=== PATIENT | female | born 1995 | race Caucasian/White ===

== ENCOUNTER 2017-11-10 01:17 | Observation (INO) | payer BC, SELFPAY ==
[2017-11-10] VITALS (11 sets, daily range): BP systolic 116–135; BP diastolic 64–89; PULSE 86–112; RESP 12–24; TEMP 36.2–36.9; O2SAT 96–99; BMI 35.5; BMI 33.9
--- NOTE | 2017-11-10 01:23 | EKG12_ITS ---
Test Reason : SEIZURE Blood Pressure : / mmHG Vent. Rate : 094 BPM Atrial Rate : 094 BPM P-R Int : 192 ms QRS Dur : 096 ms QT Int : 350 ms P-R-T Axes : 039 -02 011 degrees QTc Int : 437 ms Normal sinus rhythm Normal ECG Confirmed by WM RAI MD ([id number]), editorial writer NAOMI IVY ([id number] on 11/12/2017 1:44:53 PM Referred By: ELIZABETH Confirmed By:WM RAI MD
--- NOTE | 2017-11-10 01:23 | CT_ITS ---
STUDY: CT BRAIN WITHOUT CONTRAST REASON FOR EXAM: Female, 22 years old. Seizure. Found unresponsive. RADIATION DOSAGE (If Supplied By Facility): CTDIvol = ( 44.99 ) mGy, DLP = ( 745.49 ) mGycm TECHNIQUE: Transaxial CT imaging of the brain was performed without administration of intravenous contrast material. Individualized dose optimization techniques were used for this CT. COMPARISON: None. FINDINGS: Normal soft tissue structures. Normal calvarium. Normal size ventricles and extra-axial spaces for the patient's age. Normal white matter tracts of the cerebral hemispheres. Normal basal ganglia and thalami. Normal brainstem. Normal cerebellum. Within the medial aspect left frontal lobe is a 3.4 x 2.0 cm ill-defined cyst attenuation 15 Hounsfield units. No appreciable midline shift. There is no intracranial hemorrhage. There are no findings of an acute ischemic infarction. Normal visualized paranasal sinuses. CT/Brain/Head without Contrast IMPRESSION: 3.4 cm ill-defined left frontal lobe cyst. Considerations include an abscess or a cystic neoplasm. Recommend correlation with MRI with contrast. Electronically Signed: Freddy Rodriguez MD at 2:32 EST , Service support ,
--- NOTE | 2017-11-10 01:31 | ED.DCSUM_ITS ---
- ER Visit Summary Date of Service: 11/10/17 Chief Complaint: Questionable seizure History of Present Illness: The patient is a 22 F who is otherwise healthy and takes easier. The patient was in her normal state of health. She was actually sleeping. Mom states that she heard some loud noises from her bedroom. She went to check on her. The patient was unresponsive. She was foaming from her mouth was very tense. She would not respond to sternal rub or to her name. It lasted a few minutes and then she had guttural sounds. Squad was called. By the time squad arrived, the patient was back to baseline. There is no urinary incontinence but she did have some tongue biting. The patient has no history of seizure disorder. She does not take any daily medications. She denies any drug use. She states she did have 1 alcoholic beverage today, but does not drink regularly. She denies any recent trauma. She denies any other systemic symptoms. Physical Examination: Vital signs reviewed General: Well-nourished, well-developed Head: Normocephalic, atraumatic Eyes: Pupils equal and reactive, extraocular muscles intact Neck, supple, no lymphadenopathy Heart: Regular rate and rhythm Respiratory: No distress, clear bilaterally Abdomen: Soft, nontender, nondistended, no peritoneal signs Back: Nontender Extremities: Nontender, no edema, no cords Skin: Normal color no rash Neuro: Alert and oriented, no focal or lateralizing deficits Test Results: Screening labs were obtained were unremarkable. CT the head shows a well-circumscribed mass in the left frontal area that is 3.4 x 2 cm. There is no midline shift. There is no significant edema. Emergency Department Course and Treatment: Patient presents with a new onset seizure. She has a normal neurologic examination. Her labs are unremarkable. However, her CT does show evidence of a frontal lobe mass. There is no midline shift and no significant edema. Patient was sent for CT with IV contrast which is currently pending. She was given IV Keppra. I discussed the patient with Dr. Forman for neurology. The patient is going to need an MRI and he was comfortable with her staying here with him on consult. The patient will be discussed with the hospitalist and will be admitted for further workup of new onset seizure with brain mass. Treatment Plan: [] Disposition: Admission Impression: 1. New onset seizure 2. Left frontal lobe mass This note was generated with [employer] dictation software. It may contain incorrect words, spelling, and punctuation that were not noted in review of the chart prior to signing ED Disposition - Plan for ED Patient: Chief Complaint: Seizure Referrals: Benja Simpson MD [Primary Care Provider] -
[2017-11-10] MEDS: 0.9% Normal Saline 1,000 ML 1000 ML IV (01:37)
[2017-11-10 01:55] LABS: Absolute Lymphocyte Count 2.47 X10^3/ul (0.83-4.51); Absolute Neutrophil Count 6.9 X10^3/uL (2.0-7.7); Basophil# 0.01 X10^3/uL; Basophil% 0.1 % (0-1); Eosinophil# 0.07 X10^3/uL; Eosinophils% 0.7 % (0-5); Hematocrit 39.2 % (37-47); Hemoglobin 13.7 g/dl (12.0-15.0); Lymphocyte # 2.47 X10^3/ul (4.0); Lymphocyte % 24.5 % (19-41); Mean Corp Hgb Conc 34.9 g/gl (32-36); Mean Corpuscular Hgb 29.1 pg (27.0-32.0); Mean Corpuscular Volume 83.2 fL (81-99); Mean Platelet Vol. 9.3 fl (6.2-12.0); Monocyte# 0.62 X10^3/uL; Monocyte% 6.2 % (0-10); Neutrophil # 6.88 X10^3/uL (2.7-7.7); Neutrophil % 68.3 % (47-70); POSITIVE COUNT NO; POSITIVE DIFFERENTIAL NO; POSITIVE MORPHOLOGY NO; Platelet Count 189 K/mm3 (150-450); RBC Distribution Width CV 12.1 % (11.6-14.6); RBC Distribution Width SD 36.7 fl (35.1-43.9); Red Blood Count 4.71 M/mm3 (4.2-5.4); White Blood Count 10.1 K/mm3 (4.4-11.0)
--- NOTE | 2017-11-10 02:14 | CT_ITS ---
STUDY: CT BRAIN WITH CONTRAST REASON FOR EXAM: Female, 22 years old. Seizure. Patient found unresponsive. RADIATION DOSAGE (If Supplied By Facility): CTDIvol = ( 44.99 ) mGy, DLP = ( 829.85 ) mGycm TECHNIQUE: Transaxial CT imaging of the brain was performed post contrast administration. The examination was performed with intravenous administration of 50 ml of Isovue 370 contrast material. Individualized dose optimization techniques were used for this CT. COMPARISON: Noncontrast CT head November 10, 2017. FINDINGS: Normal soft tissue structures. Normal calvarium. Normal size ventricles and extra-axial spaces for the patient's age. Normal white matter tracts of the cerebral hemispheres. Normal basal ganglia and thalami. Normal brainstem. Normal cerebellum. There is no intracranial hemorrhage. There are no findings of an acute ischemic infarction. Again noted is a 3.5 x 2.2 cm cyst, attenuation 14 Hounsfield units, within the medial aspect left frontal lobe demonstrating very minimal rim enhancement. No thickened wall to suggest an abscess. No appreciable mass effect. No appreciable contrast enhancement within the cyst. No midline shift. Normal visualized paranasal sinuses. CT/Brain/Head W/WO Contrast IMPRESSION: 3.5 cm left frontal lobe cyst with minimal rim enhancement. Considerations include an epidermoid or a cystic neoplasm. Recommend correlation with MRI with contrast as well as diffusion-weighted images. Electronically Signed: Freddy Rodriguez MD at 3:28 EST , Service support ,
[2017-11-10 02:22] LABS: ALB/GLOB Ratio 1.2 RATIO (0.9-2.4); AST(SGOT) 16 U/L (15-37); Alanine Aminotransfer ALT/SGPT 33 U/L (13-56); Albumin, Serum 3.7 g/dL (3.2-5.0); Alkaline Phosphatase 64 U/L (45-117); Anion Gap 8 (5-15); BUN 17 mg/dL (7-18); BUN/Creat Ratio 21.5 RATIO (10-20); Calcium,Total 8.5 mg/dL (8.5-10.1); Chloride 109 mmol/L (98-107); Creatinine, Serum 0.79 mg/dL (0.55-1.02); EST Glomerular Filtration Rate 96 mL/min (>60); Est Glom Filt Rate - Afr Amer 116 mL/min (>60); Globulin 3.1 g/dL (2.2-4.2); Glucose 112 mg/dL (74-106); Potassium 3.7 mmol/L (3.5-5.1); Protein, Total 6.8 g/dL (6.4-8.2); Sodium Level 143 mmol/L (136-145)
[2017-11-10 02:23] LABS: Pregnancy, Serum, hCG Quali. NEGATIVE Negative (0-9 Nonpreg)
--- NOTE | 2017-11-10 04:19 | PCM.HP.STD ---
Problem List (1) Lesion of left frontal lobe of brain Status: Acute (2) New onset seizure Status: Acute History of Present Illness Date of Admission: 11/10/17 Chief Complaint: New onset seizure The patient is a 22 year old female previous healthy admitted for new onset seizure. Pt is unable to remember the event. Her mother heard the dog barking in her room. By the time her mother came to the room, her mother noted that she was drooling at her mouth. She was -weight. Nothing appeared to wake her up and she was unconscious. After 10 minutes, she regained conscious and unable to remember the event. She had a mild frontal headache. Nothing made the headache worse or better and headache resolved within a few hours. She had headache in the past but associated the headache with whatever other symptoms she had. She never had a seizure or had lost conscious before. Her mother brought her to the ED for further workup. Past Medical History Allergies No Known Allergies Allergy (Verified 11/10/17 01:26) Home Medications: Ambulatory Orders Medication Instructions Recorded NK [NK] 11/10/17 Surgical History: no surgical history Lives: With Family Smoking Status: Never smoker Alcohol: None Drugs: None - *Family History Maternal History Items: No pertinent history Review of Systems Constitutional: Denies: Chills, Fever, Weight Change HEENT: Denies: Head Aches, Sinus Congestion, Sinus Drainage Cardiovascular: Denies: Chest Pain, Palpitations Respiratory: Denies: Cough, Shortness of breath at rest, Sputum production Gastrointestinal: Denies: Abdominal Pain, Nausea, Vomiting Genitourinary: Denies: Dysuria Musculoskeletal: Denies: Joint Pain, Joint Tenderness Skin: Denies: Rash, Wounds Neurological: Reports: Seizures. Denies: Focal weakness, Numbness, Tingling Psychiatric: Denies: Anxiety, Depression, Homicidal Ideations, Suicidal Ideations Hematologic/ Lymphatic: Denies: Easy Bruising, Easy Bleeding VTE Information - Inpt Only VTE Present on Admission: No VTE Mechan Device Prophylaxis: SCD's VTE Pharm Prophylaxis ordered?: Yes Patient Problems: Active and Suspected Problems Lesion of left frontal lobe of brain (Acute) New onset seizure (Acute) - Physical Exam General: Alert, Oriented x3, Cooperative HEENT: Atraumatic, PERRLA, EOMI, Normocephalic Neck: Supple, No JVD, Negative Carotid Bruits Lungs: Clear to auscultation, Normal air movement Cardiovascular: Regular rate, No murmurs Abdomen: Bowel Sounds Present, Soft, Non Tender Extremities: No edema, Capillary Refill Less than 3 Seconds Skin: No rashes, No breakdown Musculoskeletal: No Tenderness to Palpation of Joints or Extremities Neurological: Cranial nerves II-XII grossly intact Psych/Mental Status: Normal Affect, Appropriate Vital Signs Temp Pulse Resp BP Pulse Ox 97.2 F L 109 H 16 116/79 96 11/10/17 01:18 11/10/17 03:50 11/10/17 03:50 11/10/17 03:50 11/10/17 03:50 Assessment/Plan Active and Suspected Problems Lesion of left frontal lobe of brain (Acute) New onset seizure (Acute) 22 year old female previous healthy admitted for new onset seizure. 1) New onset seizure: Most likely secondary to 3.5 cm left frontal lobe cyst with minimal rim enhancement Will get MRI brain. Consult neuro. May need anti-seizure meds but will defer to neuro. 2)Left frontal brain cyst: MRI in AM. Neuro consulted. 3) Prophylaxis: SCD / heparin.
--- NOTE | 2017-11-10 05:55 | MRI_ITS ---
STUDY: MRI BRAIN WITH AND WITHOUT CONTRAST REASON FOR EXAM: Female, 22 years old. Syncope versus seizure. New onset of seizure. TECHNIQUE: Standardized multiplanar fat and water weighted pulse sequences were obtained. 9 ml of Gadavist contrast material was administered intravenously for the contrast portion of the examination. COMPARISON: CT brain with and without contrast 11/10/2017. FINDINGS: Nonenhancing T1 hypointensity intra-axial lesion in the left superior frontal lobe gyrus measures 4.2 x 2.4 x 3.3 cm. This is low grade neoplasm. This is slightly hyperintense on the T2 FLAIR sequence. Normal ventricles and cisterns. No other focal signal abnormalities throughout the brain parenchyma. Normal bilateral basal ganglia. Normal thalami. There is no extra-axial fluid accumulation. Normal flow voids within the major intracranial circulation suggesting patency by spin echo criteria. Normal venous enhancement. There is no enhancing intra-axial or extra-axial abnormality. Normal sella turcica, pituitary gland, infundibular stalk, optic chiasm and hypothalamus. Normal tectal plate and pineal gland. Normal midbrain, nia and medulla. Normal cerebellum. Normal basal cisterns. Normal bilateral temporal bones. Normal bilateral internal auditory canals. No demonstrated orbital abnormality, within the constraints of a routine brain study. Normal visualized paranasal sinuses. Normal calvarium and skull base. Normal visualized soft tissue structures. Normal visualized upper cervical spine. 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 Electronically Signed: Antonio Mccall MD at 13:37 EST , Service support ,
[2017-11-10 06:30] LABS: Hematocrit 39.3 % (37-47); Hemoglobin 13.6 g/dl (12.0-15.0); Mean Corp Hgb Conc 34.6 g/gl (32-36); Mean Corpuscular Hgb 29.1 pg (27.0-32.0); Mean Platelet Vol. 9.2 fl (6.2-12.0); Platelet Count 196 K/mm3 (150-450); RBC Distribution Width CV 12.3 % (11.6-14.6); RBC Distribution Width SD 37.1 fl (35.1-43.9); Red Blood Count 4.68 M/mm3 (4.2-5.4); White Blood Count 10.4 K/mm3 (4.4-11.0)
[2017-11-10 06:34] LABS: Scan Indicated on CBC? Y/N NO
[2017-11-10 06:54] LABS: Anion Gap 8 (5-15); BUN 15 mg/dL (7-18); BUN/Creat Ratio 18.3 RATIO (10-20); Calcium,Total 8.5 mg/dL (8.5-10.1); Chloride 107 mmol/L (98-107); Creatinine, Serum 0.82 mg/dL (0.55-1.02); EST Glomerular Filtration Rate 92 mL/min (>60); Est Glom Filt Rate - Afr Amer 111 mL/min (>60); Estimated Creatinine Clearance 84.39 ml/min; Glucose 134 mg/dL (74-106); Potassium 3.9 mmol/L (3.5-5.1); Sodium Level 141 mmol/L (136-145)
[2017-11-10] MEDS: Ondansetron 4 MG/2 ML Vial IV (07:49)
[2017-11-10] MEDS: 0.9% NaCl Peripheral Flush Adult/Peds IV (07:49)
[2017-11-10 13:18] LABS: Magnesium 2.2 mg/dL (1.6-2.6); Thyroid Stim Hormone (TSH) 0.69 uIU/mL (0.358-3.74)
--- NOTE | 2017-11-10 13:27 | CASEMGMT ---
Face to Face with patient for initial transition planning/care coordination assessment. RN MARIPOSA introduced self and role at [facility], pt voices understanding and consents to assessment at this time. Pt is sitting up in bed in no distress at this time. Pt A/O x4 at this time and answers all questions appropriately at this time. Care providers, pharmacy, and demographics verified. See attached link. Pt voices no further concerns/needs at this time. Advised pt/family to ask for CM if any further questions/concerns/needs arise, voices understanding. PLAN[place] [facility]
--- NOTE | 2017-11-10 13:36 | PCM.PN.HOSP ---
Patient Problems: Active and Suspected Problems Lesion of left frontal lobe of brain (Acute) New onset seizure (Acute) Subjective: Patient with no acute events following admission per self and per nursing report. Patient notes feeling fatigued but otherwise no further seizure-like activity staff and also per family who made with the patient. Patient notes that headache has continued to remain resolved. Patient denies fevers, chills, nausea, emesis, abdominal pain, chest pain or dyspnea. Objective: Physical Examination: General: awake, alert, oriented x 3 and cooperative, seated upright in bed in no apparent distress. Skin: normal color, turgor, no icterus, cyanosis. HEENT: AT/NC, EOMI, PERRLA, MMM. Lungs: CTA bilaterally, moderate effort, mild decrease BL bases, no rales, ronchi or wheezing. Heart: Regular rate and rhythm; no gallop, rub audible. Abdomen: soft, obese, NTTP, ND, normal BS. Extremities: no cyanosis, clubbing, or edema. Neurological: patient awake, alert, oriented x 3; cognitive function intact; pupils equally reactive to light and accomodation; cranial nerves II-XII grossly normal, moving all 4 extremities, no focal deficits, strength preserved. Psychiatric: affect appears normal, no acute evidence of depressive or anxiety feelings. Vitals/I&O's: Vital Signs Temp Pulse Resp BP Pulse Ox 98.2 F 99 16 116/64 98 11/10/17 10:10 11/10/17 10:56 11/10/17 10:10 11/10/17 10:10 11/10/17 10:10 Oxygen Delivery Method Room Air Weight: 185 lb 6.54 oz Body Mass Index (BMI) 33.9 Intake and Output for Last 24 Hours 11/08/17 11/09/17 11/10/17 23:59 23:59 23:59 Intake Total 220 / 220 Balance 220 / 220 Laboratory Results 11/10/17 06:15: Sodium 141, Potassium 3.9, Chloride 107, Carbon Dioxide 26.0, Anion Gap 8, BUN 15, Creatinine 0.82, Estim Creat Clear Calc 84.39, Est GFR (MDRD) Af Amer 111, Est GFR (MDRD) Non-Af 92, BUN/Creatinine Ratio 18.3, Glucose 134 H, Calcium 8.5 11/10/17 06:15: WBC 10.4, RBC 4.68, Hgb 13.6, Hct 39.3, MCV 84.0, MCH 29.1, MCHC 34.6, RDW 12.3, RDW Differential 37.1, Plt Count 196, MPV 9.2 11/10/17 06:15: Magnesium 2.2, TSH 0.69 Current Medications Acetaminophen (Tylenol) 650 mg PO Q6H PRN PRN PRN Reason: Non-cardiac pain (mod-severe) Hydralazine HCl (Apresoline) 10 mg IV Q4H PRN PRN PRN Reason: SBP > 160 Magnesium Hydroxide (Milk Of Magnesia) 30 ml PO DAILY PRN PRN Reason: Constipation Ondansetron HCl (Zofran) 4 mg IV Q8H PRN PRN PRN Reason: NAUSEA/VOMITING Last Admin: 11/10/17 07:49 Dose: 4 mg Sodium Chloride () 5 - 30 ml IV UD PRN PRN Reason: SALINE FLUSH Last Admin: 11/10/17 07:49 Dose: 10 ml Assessment/Plan Active and Suspected Problems Lesion of left frontal lobe of brain (Acute) New onset seizure (Acute) The patient is a 22 y/o F w/ PMHx: Obesity otherwise healthy who presents to the [facility] ED on 11/10/17 with initially unwitnessed possible seizure activity with associated left fontal headache with family noting the family canine was barking in the patients room and upon their evaluation they noted the patient was laying, drooling, unresponsive with eventual slow resolution of mental status. (1) New-onset Possible Seizure: Not initially witnessed, but toward possible end and during postictal state. Improved mental status in the emergency room. CT head without acute intracranial pathology. Lab work-up included unremarkable CBC, CMP. UTox not obtained, will order. TSH obtained, normal. Admitted to PCU, maintain on telemetry in PCU on seizure precautions, obtain EEG, pending brain MRI, given Keppra IV x 1 in the ED, not continued pending Neurology assessment/MRI given first time. PRN ativan IV for seizure activity. (2) Obesity: Weight loss and lifestyle changes encouraged. (3) DVT Prophylaxis: CHIQUITA, low risk. CHARGES: 62700, NOT BILLED, SEEN AFTER MIDNIGHT PER ADMITTING
--- NOTE | 2017-11-10 13:49 | PN_ITS ---
Patient Problems: Active and Suspected Problems Lesion of left frontal lobe of brain (Acute) New onset seizure (Acute) Subjective: Patient with no acute events following admission per self and per nursing report. Patient notes feeling fatigued but otherwise no further seizure-like activity staff and also per family who made with the patient. Patient notes that headache has continued to remain resolved. Patient denies fevers, chills, nausea, emesis, abdominal pain, chest pain or dyspnea. Objective: Physical Examination: General: awake, alert, oriented x 3 and cooperative, seated upright in bed in no apparent distress. Skin: normal color, turgor, no icterus, cyanosis. HEENT: AT/NC, EOMI, PERRLA, MMM. Lungs: CTA bilaterally, moderate effort, mild decrease BL bases, no rales, ronchi or wheezing. Heart: Regular rate and rhythm; no gallop, rub audible. Abdomen: soft, obese, NTTP, ND, normal BS. Extremities: no cyanosis, clubbing, or edema. Neurological: patient awake, alert, oriented x 3; cognitive function intact; pupils equally reactive to light and accomodation; cranial nerves II-XII grossly normal, moving all 4 extremities, no focal deficits, strength preserved. Psychiatric: affect appears normal, no acute evidence of depressive or anxiety feelings. Vitals/I&O's: Vital Signs Temp Pulse Resp BP Pulse Ox 98.2 F 99 16 116/64 98 11/10/17 10:10 11/10/17 10:56 11/10/17 10:10 11/10/17 10:10 11/10/17 10:10 Oxygen Delivery Method Room Air Weight: 185 lb 6.54 oz Body Mass Index (BMI) 33.9 Intake and Output for Last 24 Hours 11/08/17 11/09/17 11/10/17 23:59 23:59 23:59 Intake Total 220 / 220 Balance 220 / 220 Laboratory Results 11/10/17 06:15: Sodium 141, Potassium 3.9, Chloride 107, Carbon Dioxide 26.0, Anion Gap 8, BUN 15, Creatinine 0.82, Estim Creat Clear Calc 84.39, Est GFR ( MDRD) Af Amer 111, Est GFR (MDRD) Non-Af 92, BUN/Creatinine Ratio 18.3, Glucose 134 H, Calcium 8.5 11/10/17 06:15: WBC 10.4, RBC 4.68, Hgb 13.6, Hct 39.3, MCV 84.0, MCH 29.1, MCHC 34.6, RDW 12.3, RDW Differential 37.1, Plt Count 196, MPV 9.2 11/10/17 06:15: Magnesium 2.2, TSH 0.69 Current Medications Acetaminophen (Tylenol) 650 mg PO Q6H PRN PRN PRN Reason: Non-cardiac pain (mod-severe) Hydralazine HCl (Apresoline) 10 mg IV Q4H PRN PRN PRN Reason: SBP > 160 Magnesium Hydroxide (Milk Of Magnesia) 30 ml PO DAILY PRN PRN Reason: Constipation Ondansetron HCl (Zofran) 4 mg IV Q8H PRN PRN PRN Reason: NAUSEA/VOMITING Last Admin: 11/10/17 07:49 Dose: 4 mg Sodium Chloride () 5 - 30 ml IV UD PRN PRN Reason: SALINE FLUSH Last Admin: 11/10/17 07:49 Dose: 10 ml Assessment/Plan Active and Suspected Problems Lesion of left frontal lobe of brain (Acute) New onset seizure (Acute) The patient is a 22 y/o F w/ PMHx: Obesity otherwise healthy who presents to the [facility] ED on 11/10/17 with initially unwitnessed possible seizure activity with associated left fontal headache with family noting the family canine was barking in the patients room and upon their evaluation they noted the patient was laying, drooling, unresponsive with eventual slow resolution of mental status. (1) New-onset Possible Seizure: Not initially witnessed, but toward possible end and during postictal state. Improved mental status in the emergency room. CT head without acute intracranial pathology. Lab work-up included unremarkable CBC, CMP. UTox not obtained, will order. TSH obtained, normal. Admitted to PCU, maintain on telemetry in PCU on seizure precautions, obtain EEG, pending brain MRI, given Keppra IV x 1 in the ED, not continued pending Neurology assessment/ MRI given first time. PRN ativan IV for seizure activity. (2) Obesity: Weight loss and lifestyle changes encouraged. (3) DVT Prophylaxis: CHIQUITA, low risk. CHARGES: 48646, NOT BILLED, SEEN AFTER MIDNIGHT PER ADMITTING
--- NOTE | 2017-11-10 14:57 | PCM.CONS.GEN ---
Problem List (1) Left frontal lobe mass Status: Acute (2) New onset seizure Status: Acute Reason for Consult Date of Consultation: 11/10/17 Reason for Consultation: Seizure History of Present Illness: The patient is a 22 year old CF with no significant PMH admitted with new onset seizure. History is obtained from the patient and family, per mother they heard the sound early this morning when they went into the patient room, saw her lying on the side, with GTCs, with tonic posturing, frothing from the mouth, lasting few minutes, followed by postictal state, no tongue bite or urinary incontinence, per patient remembers going to sleep at night around 11 am then waking up in the ambulance, was unaware of the seizure event. CT head done on admission showed left frontal lobe mass vs cyst, MRI brain w/w/o contrast shows left frontal lobe mass lesion suspicious for low grade neoplasm. Denies any MADRIGAL, focal motor weakness, sensory loss, speech disturbances or visual disturbances. [] Past Medical History Allergies No Known Allergies Allergy (Verified 11/10/17 01:26) Home Medications: Ambulatory Orders Medication Instructions Recorded Levetiracetam [Keppra] 750 mg PO BID #60 tab 11/10/17 Surgical History: no surgical history Lives: With Family Smoking Status: Never smoker Alcohol: None Drugs: None - *Family History Maternal History Items: No pertinent history Paternal History Items: - - siezure in father's brother in childhood. Review of Systems Constitutional: Reports: - - complete ROS negative excetp as documented in HPI - Physical Exam General: Alert, Oriented x3, Cooperative HEENT: Atraumatic, PERRLA, EOMI, Normocephalic Neck: Supple, No JVD, Negative Carotid Bruits Lungs: Clear to auscultation, Normal air movement Cardiovascular: Regular rate Abdomen: Bowel Sounds Present, Soft, Non Tender Extremities: No edema, Capillary Refill Less than 3 Seconds Skin: No rashes, No breakdown Musculoskeletal: No Tenderness to Palpation of Joints or Extremities Neurological: Cranial nerves II-XII grossly intact, Deep Tendon Reflexes 2+/4 and Symmetrical, Neuro grossly intact, Motor Exam 5/5 strength throughout, Muscle tone normal, Sensory exam intact to light touch and pain, Coordination normal Psych/Mental Status: Normal Affect, Appropriate Vital Signs Temp Pulse Resp BP Pulse Ox 98.2 F 99 16 116/64 98 11/10/17 10:10 11/10/17 10:56 11/10/17 10:10 11/10/17 10:10 11/10/17 10:10 Oxygen Delivery Method Room Air Weight: 84.1 kg Body Mass Index (BMI) 33.9 Intake and Output for Last 24 Hours 11/08/17 11/09/17 11/10/17 23:59 23:59 23:59 Intake Total 220 / 220 Balance 220 / 220 Laboratory Tests Past 24 Hrs 11/10/17 11/10/17 11/10/17 06:15 06:15 06:15 WBC 10.4 RBC 4.68 Hgb 13.6 Hct 39.3 MCV 84.0 MCH 29.1 MCHC 34.6 RDW 12.3 RDW Differential 37.1 Plt Count 196 MPV 9.2 Sodium 141 Potassium 3.9 Chloride 107 Carbon Dioxide 26.0 Anion Gap 8 BUN 15 Creatinine 0.82 Estim Creat Clear Calc 84.39 Est GFR (MDRD) Af Amer 111 Est GFR (MDRD) Non-Af 92 BUN/Creatinine Ratio 18.3 Glucose 134 H Calcium 8.5 Magnesium 2.2 TSH 0.69 Assessment/Plan The patient is a 22 year old CF with no significant PMH admitted with new onset seizure. History is obtained from the patient and family, per mother they heard the sound early this morning when they went into the patient room, saw her lying on the side, with GTCs, with tonic posturing, frothing from the mouth, lasting few minutes, followed by postictal state, no tongue bite or urinary incontinence, per patient remembers going to sleep at night around 11 am then waking up in the ambulance, was unaware of the seizure event. CT head done on admission showed left frontal lobe mass vs cyst, MRI brain w/w/o contrast shows left frontal lobe mass lesion suspicious for low grade neoplasm. Denies any MADRIGAL, focal motor weakness, sensory loss, speech disturbances or visual disturbances. 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 -Patient counseled not to climb on ladders, work at heights, avoid working with sharp objects, not to swim alone, SUDEP risk discussed in detail -Seizure precautions. -GI/DVT prophylaxis -Fall precautions -Follow up with Neurology as outpatient in 4-6weeks -Please call with questions if any -Thank you for allowing us to participate in patient's care and management I spent 60 minutes taking history, doing physical examination, reviewing medical records, coordinating care and counseling the patient and available family. Code Visit Inpatient E&M: 86113 Init Hosp L3
--- NOTE | 2017-11-10 15:40 | EEG ---
- Electroencephalogram Date of Service: 11/10/17 History EEG is being done in this 22 yr F to rule out seizures EEG Description: This is an 18 channel EEG with 10-20 lead placement system. Bipolar montages, Referential and Circumferential montages were reviewed. Photic stimulation and Hyperventilation were performed. The posterior dominant background rhythm is 9-10 HZ synchronous, symmetric, reacting to eye opening and closing. Photo stimulation elicited normal driving response but no abnormal photoparoxysmal response, Hyperventilation did not elicit any abnormal photoparoxysmal response. Sleep was identified. There was no abnormal background slowing noted during the record but there was intermittent bifrontal sharps and epileptiform discharges more on the right side. There was no electrographic seizures noted during this recording. EKG artefact was noted during the record. EEG Interpretation This is an abnormal EEG due to the presence of intermittent bifrontal sharps and epileptiform discharges more on the right side. Rule out structural lesion in the frontal region. Clinical correlation is advised. There is no electrographic seizures noted during the record.
--- NOTE | 2017-11-10 16:07 | PCM.DC ---
- Discharge Diagnoses Current Active Problems: Current Active and Chronic Problems Lesion of left frontal lobe of brain (Acute) New onset seizure (Acute) Left frontal lobe mass (Acute) You will use the following diet at home:: No restrictions Your food should be the consistency of: Regular Your liquids should be the consistency of: Regular/Thin Discharge Activity: - - -Patient counseled not to drive for 6 months. -Patient counseled not to climb on ladders, work at heights, avoid working with sharp objects, not to swim alone, SUDEP risk discussed in detail -Seizure precautions. May resume sexual activity in: No Restrictions Weight Bearing Status: Weight bearing as tolerated Call your doctor if you observe: Fever of 101 or Higher, Inability to urinate, Inability to have a bowel movement, Shortness of breath, Dizziness, Fainting spells, Chest pain, Uncontrolled pain, - - Recurrent seizure activity. Instructions: Treating Epilepsy: Medications, Self-Care for Epilepsy, Epilepsy: Safety During a Seizure, Brain Tumors Additional Instructions: -You may not drive for at least 6 months until cleared per Neurology/Neurosurgery. -Do not to climb on ladders, work at heights, avoid working with sharp objects, not to swim alone, SUDEP risk discussed in detail. -Continue generalized Seizure precautions as described per Neurology Allergies/Adverse Reactions: Allergies No Known Allergies Allergy (Verified 11/10/17 01:26) Medications to take at Discharge Levetiracetam [Keppra] 750 mg PO BID #60 tab 11/10/17 The following prescriptions were given: Levetiracetam [Keppra] 750 mg PO BID #60 tab Primary Care Physician: Benja Simpson MD [Primary Care Provider] - Please follow up with your Primary Care Physician in: Follow-up with your PCP within 3-5 days to review admission, aware of admit Please Follow Up With: Pierre Prasad When: Please follow-up with Neurosurgery ([place]) within 1-2 weeks. Please Follow Up With: Nas Becerra MD When: Please follow-up with Hem/Onc within 1-2 weeks. Please Follow Up With: Neno Garcia MD When: Please follow-up within 4-6 weeks, call with concerns/questions. Proposed Discharge Date: 11/10/17
--- NOTE | 2017-11-10 16:14 | DCINST_ITS ---
- Discharge Diagnoses Current Active Problems: Current Active and Chronic Problems Lesion of left frontal lobe of brain (Acute) New onset seizure (Acute) Left frontal lobe mass (Acute) You will use the following diet at home:: No restrictions Your food should be the consistency of: Regular Your liquids should be the consistency of: Regular/Thin Discharge Activity: - - -Patient counseled not to drive for 6 months. -Patient counseled not to climb on ladders, work at heights, avoid working with sharp objects, not to swim alone, SUDEP risk discussed in detail -Seizure precautions. May resume sexual activity in: No Restrictions Weight Bearing Status: Weight bearing as tolerated Call your doctor if you observe: Fever of 101 or Higher, Inability to urinate, Inability to have a bowel movement, Shortness of breath, Dizziness, Fainting spells, Chest pain, Uncontrolled pain, - - Recurrent seizure activity. Instructions: Treating Epilepsy: Medications, Self-Care for Epilepsy, Epilepsy : Safety During a Seizure, Brain Tumors Additional Instructions: -You may not drive for at least 6 months until cleared per Neurology/Neurosurgery. -Do not to climb on ladders, work at heights, avoid working with sharp objects, not to swim alone, SUDEP risk discussed in detail. -Continue generalized Seizure precautions as described per Neurology Allergies/Adverse Reactions: Allergies No Known Allergies Allergy (Verified 11/10/17 01:26) Medications to take at Discharge Levetiracetam [Keppra] 750 mg PO BID #60 tab 11/10/17 The following prescriptions were given: Levetiracetam [Keppra] 750 mg PO BID #60 tab Primary Care Physician: Benja Simpson MD [Primary Care Provider] - Please follow up with your Primary Care Physician in: Follow-up with your PCP within 3-5 days to review admission, aware of admit Please Follow Up With: Pierre Prasad When: Please follow-up with Neurosurgery ([place]) within 1-2 weeks. Please Follow Up With: Nas Becerra MD When: Please follow-up with Hem/Onc within 1-2 weeks. Please Follow Up With: Neno Garcia MD When: Please follow-up within 4-6 weeks, call with concerns/questions. Proposed Discharge Date: 11/10/17
--- NOTE | 2017-11-10 16:14 | PCM.DC.SUM ---
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 Garcia Neurology Operations: None Procedures: Electroencephalogram, EKG Summary of Care Provided: The patient is a 22 y/o F w/ PMHx: Obesity otherwise healthy who presents to the [facility] ED on 11/10/17 with initially unwitnessed possible seizure activity with associated left fontal headache with family noting the family canine was barking in the patients room and upon their evaluation they noted the patient was laying, drooling, unresponsive with eventual slow resolution of mental status. CT head without acute intracranial pathology. Lab work-up included unremarkable CBC, CMP. UTox not obtained. TSH obtained, normal. Admitted to PCU, maintained on telemetry in PCU on seizure precautions, obtained EEG w/ noted bi-frontal abnormal epileptic spikes, MRI Brain w/ left superior frontal gyrus mass lesion non enhancing, T1 hypointense, T2 hyperintense-possible low grade neoplasm. Patient given Keppra IV x 1 in the ED and given findings MRI and EEG, placed on BID 750 mg Keppra per Neurology recommendation. Patient given completed work-up, no further seizure activity, discharged to home with avoidance of driving, avoidance of climbing on ladders, working at heights, avoiding working with sharp objects, advised not to swim alone, SUDEP risk discussed in detail with general ongoing seizure precautions with Neurology follow-up 4-6 weeks, PCP within 3-5 days who was updated prior to discharge with plan, planned Neurosurgery and Hem/Onc evaluation within 1-2 weeks. Discharge Activity: - - -Patient counseled not to drive for 6 months. -Patient counseled not to climb on ladders, work at heights, avoid working with sharp objects, not to swim alone, SUDEP risk discussed in detail -Seizure precautions. May resume sexual activity in: No Restrictions Weight Bearing Status: Weight bearing as tolerated Call your doctor if you observe: Fever of 101 or Higher, Inability to urinate, Inability to have a bowel movement, Shortness of breath, Dizziness, Fainting spells, Chest pain, Uncontrolled pain, - - Recurrent seizure activity. Home Medications: Medications to take at Discharge Levetiracetam [Keppra] 750 mg PO BID #60 tab 11/10/17 Following Prescrptions Were Given to Patient: Levetiracetam [Keppra] 750 mg PO BID #60 tab Primary Care Physician: Benja Simpson MD [Primary Care Provider] - Please follow up with your Primary Care Physician in: Follow-up with your PCP within 3-5 days to review admission, aware of admit Please Follow Up With: Pierre Prasad When: Please follow-up with Neurosurgery ([place]) within 1-2 weeks. Please Follow Up With: Nas Becerra MD When: Please follow-up with Hem/Onc within 1-2 weeks. Please Follow Up With: Neno Garcia MD When: Please follow-up within 4-6 weeks, call with concerns/questions. Patient Instructions: Treating Epilepsy: Medications, Self-Care for Epilepsy, Epilepsy: Safety During a Seizure, Brain Tumors Disposition: Home Minutes spent on discharge:: 35 Patient Condition:: Fair Meaningful Use Info Meaningful Use Diagnoses (Choose all that apply): None applicable Code Visit OBSV E&M: 27990 Observ/hosp same date L3
--- NOTE | 2017-11-10 16:19 | DS.PCM_ITS ---
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 Garcia Neurology Operations: None Procedures: Electroencephalogram, EKG Summary of Care Provided: The patient is a 22 y/o F w/ PMHx: Obesity otherwise healthy who presents to the [facility] ED on 11/10/17 with initially unwitnessed possible seizure activity with associated left fontal headache with family noting the family canine was barking in the patients room and upon their evaluation they noted the patient was laying, drooling, unresponsive with eventual slow resolution of mental status. CT head without acute intracranial pathology. Lab work-up included unremarkable CBC, CMP. UTox not obtained. TSH obtained, normal. Admitted to PCU , maintained on telemetry in PCU on seizure precautions, obtained EEG w/ noted bi-frontal abnormal epileptic spikes, MRI Brain w/ left superior frontal gyrus mass lesion non enhancing, T1 hypointense, T2 hyperintense-possible low grade neoplasm. Patient given Keppra IV x 1 in the ED and given findings MRI and EEG, placed on BID 750 mg Keppra per Neurology recommendation. Patient given completed work-up, no further seizure activity, discharged to home with avoidance of driving, avoidance of climbing on ladders, working at heights, avoiding working with sharp objects, advised not to swim alone, SUDEP risk discussed in detail with general ongoing seizure precautions with Neurology follow-up 4-6 weeks, PCP within 3-5 days who was updated prior to discharge with plan, planned Neurosurgery and Hem/Onc evaluation within 1-2 weeks. Discharge Activity: - - -Patient counseled not to drive for 6 months. -Patient counseled not to climb on ladders, work at heights, avoid working with sharp objects, not to swim alone, SUDEP risk discussed in detail -Seizure precautions. May resume sexual activity in: No Restrictions Weight Bearing Status: Weight bearing as tolerated Call your doctor if you observe: Fever of 101 or Higher, Inability to urinate, Inability to have a bowel movement, Shortness of breath, Dizziness, Fainting spells, Chest pain, Uncontrolled pain, - - Recurrent seizure activity. Home Medications: Medications to take at Discharge Levetiracetam [Keppra] 750 mg PO BID #60 tab 11/10/17 Following Prescrptions Were Given to Patient: Levetiracetam [Keppra] 750 mg PO BID #60 tab Primary Care Physician: Benja Simpson MD [Primary Care Provider] - Please follow up with your Primary Care Physician in: Follow-up with your PCP within 3-5 days to review admission, aware of admit Please Follow Up With: Pierre Prasad When: Please follow-up with Neurosurgery ([place]) within 1-2 weeks. Please Follow Up With: Nas Becerra MD When: Please follow-up with Hem/Onc within 1-2 weeks. Please Follow Up With: Neno Garcia MD When: Please follow-up within 4-6 weeks, call with concerns/questions. Patient Instructions: Treating Epilepsy: Medications, Self-Care for Epilepsy, Epilepsy: Safety During a Seizure, Brain Tumors Disposition: Home Minutes spent on discharge:: 35 Patient Condition:: Fair Meaningful Use Info Meaningful Use Diagnoses (Choose all that apply): None applicable Code Visit OBSV E&M: 04192 Observ/hosp same date L3
[2017-11-10] MEDS: levETIRAcetam 750 MG Tablet PO (16:45)
== END 2017-11-10 17:31 | disposition home or self-care (01) ==
LOC: ED 02:48 → PCU 06:30
PROVIDERS: Admitting Provider Internal Medicine; Emergency Provider Emergency Medicine; Family Provider Family Medicine; PCP Family Medicine; Visit Provider Family Medicine
DX: R56.9 Unspecified convulsions (principal); E66.9 Obesity, unspecified; Z68.33 Body mass index [BMI] 33.0-33.9, adult; Z71.3 Dietary counseling and surveillance; G93.0 Cerebral cysts; R94.01 Abnormal electroencephalogram [EEG]
CPT/HCPCS: 36415; 70450; 70470; 70553; 80048; 80053; 83735; 84443; 84703; 85025; 85027; 93005; 95819; 96361; 96365; 96372; 96375; 99218; 99285; A9585; J7030; Q9967; A4216; G0378; J2405

== ENCOUNTER 2017-12-26 20:30 | Emergency (ER) | payer BC, SELFPAY ==
[2017-12-26 20:31] VITALS: BP 131/54; PULSE 130; RESP 20; TEMP 37.1; O2SAT 98; BMI 32.9
[2017-12-26] MEDS: Acetaminophen 500 MG Tablet 1000 MG PO (22:28)
[2017-12-26] MEDS: 0.9% Normal Saline 1,000 ML 1000 ML IV (22:28)
[2017-12-26 23:06] LABS: Anion Gap 7 (5-15); BUN 16 mg/dL (7-18); BUN/Creat Ratio 17.4 RATIO (10-20); Chloride 106 mmol/L (98-107); Creatinine, Serum 0.92 mg/dL (0.55-1.02); EST Glomerular Filtration Rate 81 mL/min (>60); Est Glom Filt Rate - Afr Amer 97 mL/min (>60); Estimated Creatinine Clearance 75.22 ml/min; Glucose 122 mg/dL (74-106); Potassium 4.1 mmol/L (3.5-5.1); Sodium Level 139 mmol/L (136-145)
[2017-12-26 23:12] LABS: Absolute Lymphocyte Count 1.06 X10^3/ul (0.83-4.51); Absolute Neutrophil Count 12.4 X10^3/uL (2.0-7.7); Basophil# 0.01 X10^3/uL; Basophil% 0.1 % (0-1); Eosinophil# 0.01 X10^3/uL; Eosinophils% 0.1 % (0-5); Hematocrit 39.7 % (37-47); Hemoglobin 13.6 g/dl (12.0-15.0); Lymphocyte # 1.06 X10^3/ul (4.0); Lymphocyte % 7.2 % (19-41); Mean Corp Hgb Conc 34.3 g/gl (32-36); Mean Corpuscular Hgb 28.8 pg (27.0-32.0); Mean Corpuscular Volume 84.1 fL (81-99); Mean Platelet Vol. 9.4 fl (6.2-12.0); Monocyte# 1.18 X10^3/uL; Neutrophil # 12.43 X10^3/uL (2.7-7.7); Neutrophil % 84.3 % (47-70); Platelet Count 222 K/mm3 (150-450); RBC Distribution Width CV 12.1 % (11.6-14.6); RBC Distribution Width SD 36.4 fl (35.1-43.9); Red Blood Count 4.72 M/mm3 (4.2-5.4); White Blood Count 14.7 K/mm3 (4.4-11.0)
[2017-12-26 23:23] LABS: POSITIVE COUNT NO; POSITIVE DIFFERENTIAL NO; POSITIVE MORPHOLOGY NO
[2017-12-26 23:32] LABS: Bacteria 0 SEEN /hpf (None Seen)
[2017-12-26 23:36] LABS: Color, Urine Yellow (Yellow); Glucose, Dipstick Normal (Normal); Ketone-Dipstick 5 mg/dl (Negative); Leukocyte Esterase-Dipstick 25 /ul (Negative); Nitrite-Dipstick Negative (Negative); Occult Blood-Urine 10 /ul (Negative); Protein-Dipstick 30 mg/dl (Negative); Specific Gravity, Urine 1.025 (1.002-1.030); Urine Clarity Sl. Cloudy (Clear); Urine Urobilinogen 1 mg/dl (Normal)
[2017-12-26 23:37] LABS: Urine Bilirubin Dipstick 1 mg/dL (Negative)
[2017-12-26 23:44] LABS: Red Blood Cells-Urine 0-5 SEEN /hpf (0-5); Squamous Epithelial Cells - UA 5-10 SEEN /hpf (5-10); White Blood Cells 0-5 SEEN /hpf (0-5)
[2017-12-26 23:45] LABS: Mucous, Urine 3+ /hpf (<or=2+)
[2017-12-26 23:47] VITALS: BP 116/67; PULSE 103; RESP 16; O2SAT 96
--- NOTE | 2017-12-27 00:25 | RAD_ITS ---
STUDY: X-RAY CHEST REASON FOR EXAM: Female, 22 years old. Mid back pain TECHNIQUE: 1 view COMPARISON: None. FINDINGS: There is poor inspiratory effort and crowding of the bronchovascular markings. No acute pneumonia. No failure. No pleural effusions.. Normal visualized thoracic spine. Normal visualized ribs, clavicles, and shoulders. There is no demonstrated abnormality of the visualized soft tissue structures of the upper abdomen. RAD/Chest PA and Lateral IMPRESSION: Poor inspiratory effort effort with crowding of the bronchovascular markings. No acute findings in the lungs Electronically Signed: Mark Mena, at 0:54 EDT Tel , Service support ,
--- NOTE | 2017-12-27 00:29 | ED.VISSUMM ---
- ER Visit Summary Date of Service: 12/27/17 Chief Complaint: Back pain History of Present Illness: The patient is a 22 F who presents with back pain that began yesterday. Patient states the pain is sharp and over the mid back. Patient states her pain is worse with deep breathing. Patient denies any shortness of breath. Patient denies any nausea or vomiting. Patient denies any chest pain. Patient denies any dysuria or hematuria. Patient denies any fevers or chills. Patient did have a recent craniotomy for brain tumor. Patient denies any lower extremity pain or swelling. Patient denies any other symptoms. Physical Examination: Vital signs are stable except for tachycardia of 130. Oral mucosa is pink and moist. Neck is supple. Trachea is midline. There is no JVD or lymphadenopathy noted. Heart was regular and tachycardic. Lungs are diminished bilaterally. Respiratory effort was limited secondary to pain. Abdomen is soft. Bowel sounds are normal. There is no tenderness. There is no rebound or guarding noted. Cranial nerves II through XII are intact. There are no focal motor or sensory deficits noted. Extremities are intact. There is no peripheral edema noted. Test Results: CBC shows a mild leukocytosis of 14.7. Urinalysis did not show any evidence of urinary tract infection. Basic metabolic profile is within normal limits. Chest x-ray was obtained and did not show any acute cardiopulmonary process. Emergency Department Course and Treatment: Patient was given IV fluids here. Patient was given a dose of Tylenol here. Patient was given a dose of morphine and Zofran here. Repeat vital signs showed a blood pressure 116/67 pulse was 103 respiratory rate was 16. Patient felt better on reevaluation. Patient was instructed to continue her oxycodone as needed for pain. Patient was instructed to take 10-15 deep breaths every hour while awake to prevent atelectasis and pneumonia. Patient was instructed to follow-up with her surgeon as scheduled. Patient and family understood and were agreeable with the plan. All questions were answered. Disposition: Discharged home Impression: Back pain This note was generated with [employer] dictation software. It may contain incorrect words, spelling, and punctuation that were not noted in review of the chart prior to signing ED Disposition - Plan for ED Patient: Disposition: Home or Assisted Living Chief Complaint: Back Diagnosis: Thoracic back pain Instructions: ED Spasm Back No Trauma Referrals: Benja Simpson MD [Primary Care Provider] -
[2017-12-27] MEDS: Morphine 4 MG/ML Syringe IV (00:57)
[2017-12-27] MEDS: Ondansetron 4 MG/2 ML Vial IV (00:57)
[2017-12-27 01:36] VITALS: BP 114/80; PULSE 111; RESP 16; O2SAT 95
== END 2017-12-27 01:43 | disposition home or self-care (01) ==
PROVIDERS: Emergency Provider Emergency Medicine; Family Provider Family Medicine; PCP Family Medicine
DX: M54.9 Dorsalgia, unspecified (principal)
CPT/HCPCS: 71046; 80048; 81001; 85025; 96361; 96374; 96375; 99285; J7030; A4216; J2405

== ENCOUNTER → 2018-03-16 16:44 | Outpatient (CLI) | payer BC, SELFPAY ==
[2018-01-13 08:58] VITALS: BMI 33.0
--- NOTE | 2018-03-16 16:52 | MRI_ITS ---
STUDY: MRI BRAIN WITH AND WITHOUT CONTRAST REASON FOR EXAM: Female, 22 years old. 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 7 ml of Gadavist contrast material was administered intravenously for the contrast portion of the examination. COMPARISON: December 17, 2017 and November 10, 2017 FINDINGS: In the interval since prior study, there has been operative intervention with resection of previously seen smoothly marginated intra-axial left frontal lobe lesion. The lesion has been resected. The margins of the resection are irregular. The resected cavity measures approximately 5.1 cm anterior posterior by 2.2 cm transverse by 3.17 cm cranial caudal. There is no abnormal enhancement seen in association with this cavity. There is minimal enhancement seen in association with the dura overlying this area consistent with operative intervention. No additional lesions of the brain are identified. There is no evidence of mass, mass effect or shift of midline structures and no extra-axial collections are identified. Otherwise normal white matter tracts of the supratentorial brain. There is no evidence for recent intracranial ischemia or other cause of cytotoxic edema on diffusion weighted imaging (DWI). Normal bilateral basal ganglia. Normal thalami. There is no extra-axial fluid accumulation. Normal flow voids within the major intracranial circulation suggesting patency by spin echo criteria. Normal venous enhancement. There is no enhancing intra-axial or extra-axial abnormality. Normal sella turcica, pituitary gland, infundibular stalk, optic chiasm and hypothalamus. Normal tectal plate and pineal gland. Normal midbrain, nia and medulla. Normal cerebellum. Normal basal cisterns. Normal bilateral temporal bones. Normal bilateral internal auditory canals. No demonstrated orbital abnormality, within the constraints of a routine brain study. Normal visualized paranasal sinuses. Postsurgical changes are seen in association with the left frontal calvarium. Normal visualized soft tissue structures. Normal visualized upper cervical spine. MRI/Brain W/WO Contrast IMPRESSION: Postsurgical changes are associated with the left frontal hemisphere. No acute abnormality. Electronically Signed: Claudia Padilla MD at 14:58 EDT , Service support ,
== END ==
PROVIDERS: Family Provider Family Medicine; PCP Family Medicine
DX: C71.9 Malignant neoplasm of brain, unspecified (principal)
CPT/HCPCS: 70553; A9585

== ENCOUNTER → 2018-03-17 17:05 | Outpatient (CLI) | payer OTHER, SELFPAY ==
[2018-01-13 08:58] VITALS: BMI 33.0
--- NOTE | 2018-03-17 17:08 | RAD_ITS ---
STUDY: X-RAY - LEFT HAND REASON FOR EXAM: Female, 22 years old. Left hand pain. Swelling. Injury. TECHNIQUE: 3 view(s) of the hand. COMPARISON: None. FINDINGS: Normal radiocarpal articulation. Normal distal radioulnar joint. Normal visualized carpal bones. Normal carpal articulations Normal carpometacarpal articulation of the thumb. Normal second through fifth carpometacarpal joints. Normal metacarpi. Normal metacarpophalangeal joint of the thumb. Normal interphalangeal joint of the thumb. Normal proximal and distal phalanges of the thumb. Normal metacarpophalangeal joints of the second through fifth fingers. Normal proximal and distal interphalangeal joints of the second through fifth fingers. Normal phalanges of the second through fifth fingers. There is dorsal soft tissue swelling. RAD/Hand Min 3 Views IMPRESSION: No acute fracture or dislocation. Electronically Signed: Dylon Frias MD at 17:32 EDT , Service support ,
== END ==
PROVIDERS: Family Provider Family Medicine; PCP Family Medicine; Visit Provider Physician Assistant Surgical
DX: S60.222A Contusion of left hand, initial encounter (principal)
CPT/HCPCS: 73130

== ENCOUNTER → 2018-06-17 09:27 | Outpatient (CLI) | payer BC, SELFPAY ==
[2018-01-13 08:58] VITALS: BMI 33.0
--- NOTE | 2018-06-17 09:35 | MRI_ITS ---
STUDY: MRI BRAIN WITH AND WITHOUT CONTRAST REASON FOR EXAM: Female, 22 years old. 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 17 ml of Dotarem contrast material was administered intravenously for the contrast portion of the examination. COMPARISON: None. FINDINGS: There has been no significant changes in the surgical cavity in the left frontal lobe. The lesion has been resected. The margins of the resection remain irregular. The resected cavity measures approximately 5.1 cm anterior posterior by 2.2 cm transverse by 3.17 cm cranial caudal. There is no abnormal enhancement seen in association with this cavity. There is minimal enhancement seen in association with the dura overlying this area consistent with operative intervention. No additional lesions of the brain are identified. There is no evidence of mass, mass effect or shift of midline structures and no extra-axial collections are identified. Otherwise normal white matter tracts of the supratentorial brain. There is no evidence for recent intracranial ischemia or other cause of cytotoxic edema on diffusion weighted imaging (DWI). Normal bilateral basal ganglia. Normal thalami. There is no extra-axial fluid accumulation. Normal flow voids within the major intracranial circulation suggesting patency by spin echo criteria. Normal venous enhancement. There is no enhancing intra-axial or extra-axial abnormality. Normal sella turcica, pituitary gland, infundibular stalk, optic chiasm and hypothalamus. Normal tectal plate and pineal gland. Normal midbrain, nia and medulla. Normal cerebellum. Normal basal cisterns. Normal bilateral temporal bones. Normal bilateral internal auditory canals. No demonstrated orbital abnormality, within the constraints of a routine brain study. Normal visualized paranasal sinuses. Postsurgical changes are seen in association with the left frontal calvarium. Normal visualized soft tissue structures. Normal visualized upper cervical spine. MRI/Brain W/WO Contrast IMPRESSION: Postsurgical changes in the left frontal hemisphere. No acute abnormality. Electronically Signed: Sukumar Dumont MD at 11:17 EDT Tel , Service support ,
== END ==
PROVIDERS: Family Provider Family Medicine; PCP Family Medicine
DX: C71.9 Malignant neoplasm of brain, unspecified (principal)
CPT/HCPCS: 70553

== ENCOUNTER → 2018-09-22 09:17 | Outpatient (CLI) | payer BC, SELFPAY ==
[2018-01-13 08:58] VITALS: BMI 33.0
--- NOTE | 2018-09-22 09:27 | MRI_ITS ---
STUDY: MRI BRAIN WITH AND WITHOUT CONTRAST REASON FOR EXAM: Female, 23 years old. astrocytoma grade II -- recheck, occasional walls but no change from previous scan, surgery 12/2017, no chemo or radiation. TECHNIQUE: Standardized multiplanar fat and water weighted pulse sequences were obtained. 9 ml of Gadavist contrast material was administered intravenously for the contrast portion of the examination. COMPARISON: June 17, 2018 and March 16, 2018 FINDINGS: Again noted is the left frontal craniectomy with underlying left frontal surgical cavity without enhancement. However there is mild increased FLAIR signal at the anterior margin of the surgical cavity (axial image #19 series 6) Normal bilateral basal ganglia. Normal thalami. There is no extra-axial fluid accumulation. Normal flow voids within the major intracranial circulation suggesting patency by spin echo criteria. Normal venous enhancement. There is no enhancing intra-axial or extra-axial abnormality. Normal sella turcica, pituitary gland, infundibular stalk, optic chiasm and hypothalamus. Normal tectal plate and pineal gland. Normal midbrain, nia and medulla. Normal cerebellum. Normal basal cisterns. MRI/Brain W/WO Contrast IMPRESSION: Increased FLAIR signal. No enhancement. Progression/residual is not excluded. Continued follow-up is recommended. Electronically Signed: Nadya Hollingsworth MD at 10:32 EST Tel , Service support ,
== END ==
PROVIDERS: Family Provider Family Medicine; PCP Family Medicine
DX: C71.9 Malignant neoplasm of brain, unspecified (principal)
CPT/HCPCS: 70553; A9585

== ENCOUNTER → 2018-12-22 09:29 | Outpatient (CLI) | payer BC, SELFPAY ==
[2018-01-13 08:58] VITALS: BMI 33.0
--- NOTE | 2018-12-22 10:00 | MRI_ITS ---
STUDY: MRI BRAIN WITH AND WITHOUT CONTRAST REASON FOR EXAM: Female, 23 years old. Follow-up for astrocytoma resection in December,. TECHNIQUE: Standardized multiplanar fat and water weighted pulse sequences were obtained. 15 IV Dotarem was administered for the contrast portion of the examination. COMPARISON: Brain MRI 09/22/2018 and 06/17/2018. FINDINGS: Again seen is a left frontal craniotomy with underlying left frontal surgical cavity. There is no postcontrast enhancement. Again noted is mild FLAIR signal along the anterior, lateral and posterior margins of the surgical cavity, not significantly changed since 09/22/2018 but again noted to have increased since 06/17/2018. Normal size of the ventricles and extra-axial spaces for the patient's age. Normal bilateral basal ganglia. Normal thalami. There is no extra-axial fluid accumulation. Normal flow voids within the major intracranial circulation suggesting patency by spin echo criteria. Normal venous enhancement. There is no enhancing intra-axial or extra-axial abnormality. Normal sella turcica, pituitary gland, infundibular stalk, optic chiasm and hypothalamus. Normal tectal plate and pineal gland. Normal midbrain, nia and medulla. Normal cerebellum. Normal basal cisterns. Normal bilateral temporal bones. Normal bilateral internal auditory canals. No demonstrated orbital abnormality, within the constraints of a routine brain study. Normal visualized paranasal sinuses. Normal calvarium and skull base. Normal visualized soft tissue structures. Normal visualized upper cervical spine. MRI/Brain W/WO Contrast IMPRESSION: There is no postcontrast enhancement. Again noted is mild FLAIR signal along the margins of the surgical cavity, not significantly changed since 09/22/2018 but again noted to have increased since 06/17/2018. Progression/residual tumor cannot be excluded. Continued follow-up is recommended. Electronically Signed: Whitley Campos, at 11:50 EDT Tel , Service support ,
== END ==
PROVIDERS: Family Provider Family Medicine; PCP Family Medicine
DX: C71.9 Malignant neoplasm of brain, unspecified (principal); R56.9 Unspecified convulsions
CPT/HCPCS: 70553; A9575

== ENCOUNTER → 2019-03-02 | Outpatient (CLI) | payer BC, SELFPAY ==
[2018-01-13 08:58] VITALS: BMI 33.0
[2019-01-05 12:59] VITALS: BMI 32.0
[2019-03-08 17:33] LABS: HPV Reflexed? NOT INDICATED
== END | disposition home or self-care (01) ==
LOC: LABSPEC 15:14
PROVIDERS: Referring Provider Nurse Practitioner Adult Health; Visit Provider Nurse Practitioner Adult Health
DX: Z01.419 Encounter for gynecological examination (general) (routine) without abnormal findings (principal)
CPT/HCPCS: 87491; 87591; 88175; G0145

== ENCOUNTER → 2019-04-20 09:37 | Outpatient (CLI) | payer BC, SELFPAY ==
[2018-01-13 08:58] VITALS: BMI 33.0
[2019-01-05 12:59] VITALS: BMI 32.0
--- NOTE | 2019-04-20 09:52 | MRI_ITS ---
STUDY: MRI BRAIN WITH AND WITHOUT CONTRAST REASON FOR EXAM: Female, 23 years old. The patient presents with a history of a resected astrocytoma (January 02, 2018), undergoing interval reassessment. The patient is asymptomatic at this time. TECHNIQUE: Standardized multiplanar fat and water weighted pulse sequences were obtained. 15 IV Dotarem was administered for the contrast portion of the examination. COMPARISON: MRI BRAIN-October 04, 2018; MRI BRAIN-December 22, 2018 FINDINGS: The patient is status post left frontal craniotomy with a craniotomy bone flap in place. There is a surgical bed involving the superior frontal gyrus of the left frontal lobe. The surgical bed measures 52 x 23 x 32 mm (AP x transverse x craniocaudal). There is no enhancement of the surgical bed. There remains postsurgical increased signal along the anterior lateral posterior margins of the surgical bed which are unchanged as compared to the prior examination of December 22, 2018, however are increased as compared to the prior examination of October 02, 2018. There is no recurrent soft tissue mass. The surgical bed has produced an ex vacuo cephalad enlargement of the left lateral ventricle (coronal T2 series 9, image 12), unchanged as compared the prior examination of December 22, 2018. The white matter tracts otherwise unremarkable. Normal diffusion weighted images without restricted diffusion. There is postsurgical metallic artifact on the T2*GRE images. Normal bilateral basal ganglia. Normal thalami. There is no extra-axial fluid accumulation. Normal flow voids within the major intracranial circulation suggesting patency by spin echo criteria. Normal venous enhancement. There is no enhancing intra-axial or extra-axial abnormality. Normal sella turcica, pituitary gland, infundibular stalk, optic chiasm and hypothalamus. Normal tectal plate and pineal gland. Normal midbrain, nia and medulla. Normal cerebellum. Normal basal cisterns. Normal bilateral temporal bones. Normal bilateral internal auditory canals. No demonstrated orbital abnormality, within the constraints of a routine brain study. Normal visualized paranasal sinuses. Normal visualized soft tissue structures. Normal visualized upper cervical spine. MRI/Brain W/WO Contrast IMPRESSION: Status post left frontal craniotomy and surgical resection of the left superior frontal gyrus of the left frontal lobe with a stable appearance, unchanged as compared the prior examination of December 22, 2018. Electronically Signed: Fredo Francois DO at 12:32 EDT Tel , Service support ,
== END ==
PROVIDERS: Family Provider Family Medicine; PCP Family Medicine
DX: C71.9 Malignant neoplasm of brain, unspecified (principal)
CPT/HCPCS: 70553; A9575

== ENCOUNTER → 2019-06-22 09:25 | Outpatient (CLI) | payer BC, SELFPAY ==
[2018-01-13 08:58] VITALS: BMI 33.0
[2019-01-05 12:59] VITALS: BMI 32.0
--- NOTE | 2019-06-22 10:00 | MRI_ITS ---
STUDY: MRI BRAIN WITH AND WITHOUT CONTRAST REASON FOR EXAM: Female, 23 years old. Status post resection of an astrocytoma (January 02, 2018), undergoing interval reassessment. The patient is currently asymptomatic. TECHNIQUE: Standardized multiplanar fat and water weighted pulse sequences were obtained. IV Dotarem 17 was administered for the contrast portion of the examination. COMPARISON: MRI BRAIN-April 20, 2019 FINDINGS: The patient is status post left frontal craniotomy with a craniotomy bone flap in place. The surgical bed of the left superior frontal gyrus remains unchanged in size again measuring approximately 52 x 22 x 32 mm (AP x transverse x craniocaudal). There is no demonstrated recurrent solid mass lesion. There is no surrounding vasogenic edema. There is re-demonstration of hyperintense signal along the anterior, lateral, posterior margins of the surgical bed, which are unchanged and are most compatible with areas of gliosis. There is no enhancement of the surgical bed. Again demonstrated is minimal exvacuo effect with mild enlargement of the anterior horn of the left lateral ventricle. There is a focal area of susceptibility artifact along the superior margin of the surgical bed (axial T2*GRE series 8, image 17), which also is unchanged, as compared to the prior study of April 20, 2019, and is consistent with either an area of hemosiderin from prior petechial hemorrhage versus postsurgical changes. The findings indicate a stable surgical bed with no demonstrated tumor recurrence. Normal white matter tracts otherwise remain unremarkable.. There is no evidence for recent intracranial ischemia or other cause of cytotoxic edema on diffusion weighted imaging (DWI). Normal bilateral basal ganglia. Normal thalami. There is no extra-axial fluid accumulation. Normal flow voids within the major intracranial circulation suggesting patency by spin echo criteria. Normal venous enhancement. There is no enhancing intra-axial or extra-axial abnormality. Normal sella turcica, pituitary gland, infundibular stalk, optic chiasm and hypothalamus. Normal tectal plate and pineal gland. Normal midbrain, nia and medulla. Normal cerebellum. Normal basal cisterns. Normal bilateral temporal bones. Normal bilateral internal auditory canals. No demonstrated orbital abnormality, within the constraints of a routine brain study. Normal visualized paranasal sinuses. Normal visualized soft tissue structures. Normal visualized upper cervical spine. MRI/Brain W/WO Contrast IMPRESSION: Status post left frontal craniotomy and surgical resection of the left superior frontal gyrus with a stable surgical bed, unchanged compared the prior examination of April 20, 2019, with no findings of recurrent tumor. Electronically Signed: Fredo Francois DO at 11:38 EDT Tel , Service support ,
== END ==
PROVIDERS: Family Provider Family Medicine; PCP Family Medicine
DX: C71.9 Malignant neoplasm of brain, unspecified (principal)
CPT/HCPCS: 70553; A9575

== ENCOUNTER → 2019-09-21 09:29 | Outpatient (CLI) | payer BC, SELFPAY ==
[2018-01-13 08:58] VITALS: BMI 33.0
[2019-01-05 12:59] VITALS: BMI 32.0
--- NOTE | 2019-09-21 10:00 | MRI_ITS ---
STUDY: MRI BRAIN WITH AND WITHOUT CONTRAST REASON FOR EXAM: Female, 24 years old. F/U for astrocytoma. No complaints from patient TECHNIQUE: Standardized multiplanar fat and water weighted pulse sequences were obtained. IV Yes YES was administered for the contrast portion of the examination. COMPARISON: 06/22/2019 FINDINGS: Normal size of the ventricles and extra-axial spaces for the patient''s age. Normal white matter tracts of the supratentorial brain. There is no evidence for recent intracranial ischemia or other cause of cytotoxic edema on diffusion weighted imaging (DWI). Normal T2* images of the brain without demonstrated susceptibility artifact. There is no demonstrated hemosiderin stain. Status post left parietal craniotomy with resection of the medial left parietal lobe with some surrounding gliosis but no nodularity or contrast enhancement to suggest residual or recurrent tumor. Normal bilateral basal ganglia. Normal thalami. There is no extra-axial fluid accumulation. Normal flow voids within the major intracranial circulation suggesting patency by spin echo criteria. Normal venous enhancement. There is no enhancing intra-axial or extra-axial abnormality. Normal sella turcica, pituitary gland, infundibular stalk, optic chiasm and hypothalamus. Normal tectal plate and pineal gland. Normal midbrain, nia and medulla. Normal cerebellum. Normal basal cisterns. Normal bilateral temporal bones. Normal bilateral internal auditory canals. No demonstrated orbital abnormality, within the constraints of a routine brain study. Normal visualized paranasal sinuses. Normal calvarium and skull base. Normal visualized soft tissue structures. Normal visualized upper cervical spine. MRI/Brain W/WO Contrast IMPRESSION: Postsurgical changes but no evidence of residual or recurrent tumor. Electronically Signed: Jordan Zacarias MD at 11:21 EST Tel , Service support ,
== END ==
PROVIDERS: Family Provider Family Medicine; PCP Family Medicine
DX: C71.9 Malignant neoplasm of brain, unspecified (principal)
CPT/HCPCS: 70553; A9575

== ENCOUNTER → 2020-01-04 09:29 | Outpatient (CLI) | payer BC, SELFPAY ==
[2018-01-13 08:58] VITALS: BMI 33.0
[2019-01-05 12:59] VITALS: BMI 32.0
--- NOTE | 2020-01-04 09:37 | MRI_ITS ---
STUDY: MRI BRAIN WITH AND WITHOUT CONTRAST REASON FOR EXAM: Female, 24 years old. GR II ASTROCYTOMA, craniotomy 12/2017, follow up TECHNIQUE: Standardized multiplanar fat and water weighted pulse sequences were obtained. IV Dotarem 17ml was administered for the contrast portion of the examination. COMPARISON: 09/21/2019 FINDINGS: Normal size of the ventricles and extra-axial spaces for the patient''s age. Normal white matter tracts of the supratentorial brain. There is no evidence for recent intracranial ischemia or other cause of cytotoxic edema on diffusion weighted imaging (DWI). Normal T2* images of the brain without demonstrated susceptibility artifact. There is no demonstrated hemosiderin stain. There are postsurgical changes in the superior left parietal lobe but no abnormal contrast enhancement to suggest residual or recurrent tumor. Normal bilateral basal ganglia. Normal thalami. There is no extra-axial fluid accumulation. Normal flow voids within the major intracranial circulation suggesting patency by spin echo criteria. Normal venous enhancement. There is no enhancing intra-axial or extra-axial abnormality. Normal sella turcica, pituitary gland, infundibular stalk, optic chiasm and hypothalamus. Normal tectal plate and pineal gland. Normal midbrain, nia and medulla. Normal cerebellum. Normal basal cisterns. Normal bilateral temporal bones. Normal bilateral internal auditory canals. No demonstrated orbital abnormality, within the constraints of a routine brain study. Normal visualized paranasal sinuses. Normal calvarium and skull base. Normal visualized soft tissue structures. Normal visualized upper cervical spine. MRI/Brain W/WO Contrast IMPRESSION: Postsurgical changes but no evidence of residual or recurrent tumor. Electronically Signed: Jordan Zacarias MD at 10:50 EDT Tel , Service support ,
== END ==
PROVIDERS: Family Provider Family Medicine; PCP Family Medicine
DX: C71.9 Malignant neoplasm of brain, unspecified (principal)
CPT/HCPCS: 70553; A9575

== ENCOUNTER → 2020-04-04 09:30 | Outpatient (CLI) | payer BC, SELFPAY ==
[2018-01-13 08:58] VITALS: BMI 33.0
[2019-01-05 12:59] VITALS: BMI 32.0
[2020-04-03 14:01] VITALS: BMI 34.9
--- NOTE | 2020-04-04 09:39 | MRI_ITS ---
STUDY: MRI BRAIN WITH AND WITHOUT CONTRAST REASON FOR EXAM: Female, 24 years old. craniotomy TECHNIQUE: Standardized multiplanar fat and water weighted pulse sequences were obtained. IV Yes YES was administered for the contrast portion of the examination. COMPARISON: Multiple prior examinations the most recent is Jan 04 2020 FINDINGS: Again noted is the left frontal craniectomy with underlying left frontal surgical cavity without enhancement and stable surrounding increased FLAIR signal. Normal bilateral basal ganglia. Normal thalami. There is no extra-axial fluid accumulation. Normal flow voids within the major intracranial circulation suggesting patency by spin echo criteria. Normal venous enhancement. There is no enhancing intra-axial or extra-axial abnormality. Normal sella turcica, pituitary gland, infundibular stalk, optic chiasm and hypothalamus. Normal tectal plate and pineal gland. Normal midbrain, nia and medulla. Normal cerebellum. Normal basal cisterns. MRI/Brain W/WO Contrast IMPRESSION: Postsurgical changes with no evidence of residual or recurrent tumor. Electronically Signed: Nadya Hollingsworth MD at 10:05 EDT Tel , Service support ,
== END ==
PROVIDERS: PCP Family Medicine
DX: C71.9 Malignant neoplasm of brain, unspecified (principal)
CPT/HCPCS: 70553; A9575

== ENCOUNTER → 2020-08-16 16:55 | Outpatient (CLI) | payer BC, SELFPAY ==
[2018-01-13 08:58] VITALS: BMI 33.0
[2020-04-03 14:01] VITALS: BMI 34.9
--- NOTE | 2020-08-16 17:13 | MRI_ITS ---
STUDY: MRI BRAIN WITH AND WITHOUT CONTRAST REASON FOR EXAM: Female, 24 years old patient presents for routine follow-up after treatment of an astrocytoma. NO new complaints. TECHNIQUE: Standardized multiplanar fat and water weighted pulse sequences were obtained. 17 ml of IV Dotarem was administered for the contrast portion of the examination. COMPARISON: MRI of the brain dated 04/04/2020. FINDINGS: There is operative cavity involving the left paramedian frontal lobe with associated surrounding abnormal T2 hyperintensity probably representing gliosis. Normal size of the ventricles and extra-axial spaces for the patient''s age. Normal white matter tracts of the supratentorial brain. There is no evidence for recent intracranial ischemia or other cause of cytotoxic edema on diffusion weighted imaging (DWI). There is demonstrated susceptibility artifact in the left frontal cranium and left frontal lobe corresponding to previous surgery. There is demonstrated hemosiderin stain. Normal bilateral basal ganglia. Normal thalami. There is no extra-axial fluid accumulation. Normal flow voids within the major intracranial circulation suggesting patency by spin echo criteria. Normal venous enhancement. There is no enhancing intra-axial or extra-axial abnormality. Normal sella turcica, pituitary gland, infundibular stalk, optic chiasm and hypothalamus. Normal tectal plate and pineal gland. Normal midbrain, nia and medulla. Normal cerebellum. Normal basal cisterns. Normal bilateral temporal bones. Normal bilateral internal auditory canals. No demonstrated orbital abnormality, within the constraints of a routine brain study. Normal visualized paranasal sinuses. Patient has had a left frontal craniotomy. The skull base has a grossly normal appearance. Normal visualized soft tissue structures. Normal visualized upper cervical spine. MRI/Brain W/WO Contrast IMPRESSION: Unchanged postoperative appearance of a left frontal craniotomy and partial left frontal lobe resection without evidence for tumor recurrence. Electronically Signed: Trish Mckeon MD at 3:40 EST , Service support ,
== END ==
PROVIDERS: PCP Family Medicine
DX: C71.9 Malignant neoplasm of brain, unspecified (principal)
CPT/HCPCS: 70553; A9575

== ENCOUNTER → 2020-12-19 10:14 | Outpatient (CLI) | payer BC, SELFPAY ==
[2018-01-13 08:58] VITALS: BMI 33.0
[2020-04-03 14:01] VITALS: BMI 34.9
--- NOTE | 2020-12-19 10:45 | MRI_ITS ---
STUDY: MRI BRAIN WITH AND WITHOUT CONTRAST REASON FOR EXAM: Female, 25 years old. Astrocytoma, surgery 2018, follow up - no symptoms TECHNIQUE: Standardized multiplanar fat and water weighted pulse sequences were obtained. 17ml IV Dotarem was administered for the contrast portion of the examination. COMPARISON: 08/16/2020. FINDINGS: There is encephalomalacia and mild residual gliosis in the left frontal parietal region status post craniotomy and resection of neoplasm as per clinical history. There is residual hemosiderin at the operative site There is no l parenchymal enhancement suggest recurrent or residual neoplasm. Normal bilateral basal ganglia. Normal thalami. There is no extra-axial fluid accumulation. Normal flow voids within the major intracranial circulation suggesting patency by spin echo criteria. Normal venous enhancement. There is no enhancing intra-axial or extra-axial abnormality. Normal sella turcica, pituitary gland, infundibular stalk, optic chiasm and hypothalamus. Normal tectal plate and pineal gland. Normal midbrain, nia and medulla. Normal cerebellum. Normal basal cisterns. Normal bilateral temporal bones. Normal bilateral internal auditory canals. No demonstrated orbital abnormality, within the constraints of a routine brain study. Normal visualized paranasal sinuses. Normal calvarium and skull base. Normal visualized soft tissue structures. Normal visualized upper cervical spine. No significant change since prior study MRI/Brain W/WO Contrast IMPRESSION: Stable appearance to the brain status post left frontoparietal craniotomy and neoplasm resection without evidence for residual or recurrent tumor Electronically Signed: Murray Machuca MD at 15:58 EDT , Service support ,
== END ==
PROVIDERS: PCP Family Medicine
DX: C71.9 Malignant neoplasm of brain, unspecified (principal)
CPT/HCPCS: 70553; A9575

== ENCOUNTER → 2021-02-27 10:53 | Outpatient (CLI) | payer BC, SELFPAY ==
[2018-01-13 08:58] VITALS: BMI 33.0
[2020-04-03 14:01] VITALS: BMI 34.9
[2021-02-27 12:34] LABS: Absolute Lymphocyte Count 1.98 X10^3/uL (0.83-4.51); Basophil# 0.02 X10^3/uL; Basophil% 0.4 % (0-1); Eosinophil# 0.06 X10^3/uL; Eosinophils% 1.1 % (0-5); Hematocrit 45.3 % (37-47); Hemoglobin 14.6 g/dL (12.0-15.0); Lymphocyte # 1.98 X10^3/ul (0.83-4.51); Lymphocyte % 35.8 % (19-41); Mean Corp Hgb Conc 32.2 g/dL (32-36); Mean Corpuscular Hgb 27.8 pg (27.0-32.0); Mean Corpuscular Volume 86.1 fL (81-99); Mean Platelet Vol. 9.5 fl (6.2-12.0); Monocyte# 0.41 X10^3/uL; Monocyte% 7.4 % (0-10); NRBC Flagged by Analyzer 0 % (0-5); Neutrophil # 3.04 X10^3/uL (2.7-7.7); Neutrophil % 54.9 % (47-70); Platelet Count 233 K/mm3 (150-450); RBC Distribution Width CV 12.5 % (11.6-14.6); RBC Distribution Width SD 39.1 fl (35.1-43.9); Red Blood Count 5.26 M/mm3 (4.2-5.4); White Blood Count 5.5 K/mm3 (4.4-11.0)
[2021-02-27 12:46] LABS: Creatinine, Serum 0.74 mg/dL (0.55-1.02)
[2021-02-27 12:47] LABS: Alanine Aminotransfer ALT/SGPT 24 U/L (13-56); Cholesterol 200 mg/dL (200); EST Glomerular Filtration Rate 101 mL/min (>60); Est Glom Filt Rate - Afr Amer 122 mL/min (>60); High Density Lipoprotein 42 mg/dL; Triglycerides 114 mg/dL; Very Low Density Lipoprotein 23 mg/dL (5-40)
== END ==
PROVIDERS: PCP Family Medicine; Referring Provider Family Medicine; Visit Provider Family Medicine
DX: Z00.00 Encounter for general adult medical examination without abnormal findings (principal); Z85.841 Personal history of malignant neoplasm of brain
CPT/HCPCS: 36415; 80061; 82565; 84460; 85025

== ENCOUNTER → 2021-04-17 10:14 | Outpatient (CLI) | payer BC, SELFPAY ==
[2018-01-13 08:58] VITALS: BMI 33.0
[2020-04-03 14:01] VITALS: BMI 34.9
--- NOTE | 2021-04-17 10:45 | MRI_ITS ---
EXAM DESCRIPTION: MRI of the head CLINICAL HISTORY: 25 years Female, Hx of astrocytoma, CHECK UP, NONEW COMPLAINTS COMPARISON: Previous CT scan of the head obtained on 12/19/2020 previous MRI of the head obtained on 12/19/2020 TECHNIQUE: An MRI was performed utilizing axial diffusion and ADC map images followed by axial T2 and FLAIR and gradient echo images followed by sagittal and axial T1 weighted images. Coronal T2-weighted images were obtained along with multiplanar postcontrast T1-weighted images of the head. FINDINGS: The diffusion weighted axial images and ADC map images of the head show no evidence of restricted diffusion. The nia, medulla and midbrain and cerebellum appear to be normal. The ventricles and sulci are normal in size and shape. The patient has had a left frontoparietal craniotomy with resection of the mid left superior frontal gyrus and a portion of the left mid frontal gyrus. Presumably this postoperative cavity was resection of a previously noted astrocytoma. At this time no residual enhancement is identified. There is some residual gliosis noted surrounding the postoperative cavity which is expected. A small area of hemosiderin deposition is noted in the parasagittal location in the mid postoperative cavity. No evidence of tumor recurrence is identified in the right cerebral hemisphere and left parietal and occipital lobes and the left temporal lobe appear to be normal.The basal ganglia appear to be normal. No enhancing masses or lesions are seen. No evidence of a Chiari I malformation is identified. The V4 segments of the vertebral artery, the basilar artery, the posterior cerebral arteries, the cavernous and supraclinoid carotid arteries, and the M1 segments of the middle cerebral arteries are all normal The orbits including the optic nerves and optic chiasm appear normal. The pituitary and pituitary infundibulum appear to be normal. I again seen is a left frontal parietal craniotomy. The remainder the bony calvarium appears to be normal. The frontal, ethmoid, maxillary, and sphenoid sinuses are normal. The mastoid air cells are normal. MRI/Brain W/WO Contrast IMPRESSION: Stable postoperative appearance from a left frontoparietal craniotomy. No evidence of recurrent tumor is seen. Electronically Signed: Juan Lisa DO at 12:31 EDT Tel , Service support ,
== END ==
PROVIDERS: PCP Family Medicine
DX: C71.9 Malignant neoplasm of brain, unspecified (principal)
CPT/HCPCS: 70553; A9575

== ENCOUNTER → 2021-08-21 10:12 | Outpatient (CLI) | payer BC, SELFPAY ==
[2018-01-13 08:58] VITALS: BMI 33.0
--- NOTE | 2021-08-21 10:38 | MRI_ITS ---
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 This report was created using dVisit report generation technology. CONTRAST: IV 16mL Dotarem COMPARISON: 8.3.21 FINDINGS: BRAIN AND EXTRA-AXIAL SPACES: There are scattered areas of low GRE signal in the brain. This likely represents areas of prior infarction and/or hemosiderin deposition. There is again resection of the mid left superior frontal gyrus and a portion of the left mid frontal gyrus noted. This postoperative cavity was resection of a previously noted astrocytoma. At this time no residual enhancement is identified. No intra- or extra-axial hemorrhage. Posterior fossa structures are unremarkable. Ventricles are appropriate for age. No hydrocephalus. Basal cisterns are patent. SELLA: Unremarkable. Normal sella turcica, pituitary gland, infundibular stalk, optic chiasm and hypothalamus. AUDITORY SYSTEM: Unremarkable. The internal auditory canals are patent. BONES/JOINTS: Stable postoperative appearance from a left frontoparietal craniotomy. No discrete lytic or blastic abnormalities. SINUSES: Unremarkable as visualized. Clear. MASTOID AIR CELLS: Unremarkable as visualized. Clear. ORBITS: Unremarkable as visualized. Both globes, extraocular muscles, optic nerves and retrobulbar fat appear unremarkable. VASCULATURE: Unremarkable as visualized. Normal flow voids in the major intracranial circulation. OTHER FINDINGS: No evidence of recurrent tumor is seen. MRI/Brain W/WO Contrast IMPRESSION: No evidence of recurrent tumor is seen. Electronically Signed: Binu Rowe MD at 15:40 EST , Service support ,
== END ==
PROVIDERS: PCP Family Medicine
DX: C71.9 Malignant neoplasm of brain, unspecified (principal)
CPT/HCPCS: 70553; A9575

== ENCOUNTER → 2022-03-05 | Outpatient (CLI) | payer BC, SELFPAY ==
[2018-01-13 08:58] VITALS: BMI 33.0
[2022-03-05 12:10] LABS: Absolute Lymphocyte Count 1.95 X10^3/uL (0.83-4.51); Absolute Neutrophil Count 3.1 X10^3/uL (2.0-7.7); Basophil# 0.02 X10^3/uL; Basophil% 0.4 % (0-1); Eosinophil# 0.05 X10^3/uL; Eosinophils% 0.9 % (0-5); Hematocrit 45.1 % (37-47); Hemoglobin 15.2 g/dL (12.0-15.0); Lymphocyte # 1.95 X10^3/ul (0.83-4.51); Lymphocyte % 34.9 % (19-41); Mean Corp Hgb Conc 33.7 g/dL (32-36); Mean Corpuscular Hgb 28.7 pg (27.0-32.0); Mean Corpuscular Volume 85.1 fL (81-99); Mean Platelet Vol. 10.1 fl (6.2-12.0); Monocyte# 0.42 X10^3/uL; Monocyte% 7.5 % (0-10); NRBC Flagged by Analyzer 0 % (0-5); Neutrophil # 3.14 X10^3/uL (2.7-7.7); Neutrophil % 56.1 % (47-70); Platelet Count 193 K/mm3 (150-450); RBC Distribution Width CV 12.2 % (11.6-14.6); RBC Distribution Width SD 37.8 fl (35.1-43.9); White Blood Count 5.6 K/mm3 (4.4-11.0)
[2022-03-05 12:42] LABS: Hemoglobin A1c 5.3 % (3.8-5.6)
== END | disposition home or self-care (01) ==
LOC: MFPLAB 09:37
PROVIDERS: PCP Family Medicine; Referring Provider Family Medicine; Visit Provider Family Medicine
DX: Z00.00 Encounter for general adult medical examination without abnormal findings (principal); E66.9 Obesity, unspecified; Z68.39 Body mass index [BMI] 39.0-39.9, adult; Z85.841 Personal history of malignant neoplasm of brain
CPT/HCPCS: 36415; 80061; 82565; 82947; 83036; 84295; 85025

== ENCOUNTER → 2023-03-07 | Outpatient (CLI) | payer BC, SELFPAY ==
[2018-01-13 08:58] VITALS: BMI 33.0
[2023-03-07 10:14] LABS: Absolute Lymphocyte Count 1.93 X10^3/uL (0.83-4.51); Absolute Neutrophil Count 3.5 X10^3/uL (2.0-7.7); Basophil# 0.02 X10^3/uL; Basophil% 0.3 % (0-1); Eosinophil# 0.08 X10^3/uL; Eosinophils% 1.3 % (0-5); Hematocrit 45.9 % (37-47); Hemoglobin 15.1 g/dL (12.0-15.0); Lymphocyte # 1.93 X10^3/ul (0.83-4.51); Lymphocyte % 32.4 % (19-41); Mean Corp Hgb Conc 32.9 g/dL (32-36); Mean Corpuscular Hgb 28.8 pg (27.0-32.0); Mean Corpuscular Volume 87.4 fL (81-99); Monocyte% 6.7 % (0-10); NRBC Flagged by Analyzer 0 % (0-5); Neutrophil # 3.51 X10^3/uL (2.7-7.7); Platelet Count 193 K/mm3 (150-450); RBC Distribution Width CV 12.3 % (11.6-14.6); RBC Distribution Width SD 39.4 fl (35.1-43.9); Red Blood Count 5.25 M/mm3 (4.2-5.4)
[2023-03-07 10:39] LABS: Cholesterol 183 mg/dL (200); Creatinine, Serum 0.75 mg/dL (0.55-1.02); EST Glomerular Filtration Rate 98 mL/min (>60); Est Glom Filt Rate - Afr Amer 118 mL/min (>60); High Density Lipoprotein 34 mg/dL; Sodium Level 137 mmol/L (136-145); Triglycerides 146 mg/dL; Very Low Density Lipoprotein 29 mg/dL (5-40)
== END | disposition home or self-care (01) ==
PROVIDERS: PCP Family Medicine; Visit Provider Family Medicine
DX: Z13.220 Encounter for screening for lipoid disorders (principal); E66.9 Obesity, unspecified; Z85.841 Personal history of malignant neoplasm of brain; Z68.39 Body mass index [BMI] 39.0-39.9, adult
CPT/HCPCS: 36415; 80061; 82565; 84295; 85025

== ENCOUNTER 2024-03-16 09:33 | Outpatient (CLI) | payer OTHER, SELFPAY ==
[2018-01-13 08:58] VITALS: BMI 33.0
[2024-03-16 12:28] LABS: Anion Gap 7 (5-15); BUN 14 mg/dL (7-18); BUN/Creat Ratio 16.7 RATIO (10-20); Calcium,Total 9.4 mg/dL (8.5-10.1); Chloride 107 mmol/L (98-107); Cholesterol 197 mg/dL (200); Creatinine, Serum 0.84 mg/dL (0.55-1.02); EST Glomerular Filtration Rate 85 mL/min (>60); Est Glom Filt Rate - Afr Amer 103 mL/min (>60); Glucose 108 mg/dL (74-106); High Density Lipoprotein 42 mg/dL; Potassium 4.4 mmol/L (3.5-5.1); Sodium Level 139 mmol/L (136-145); Triglycerides 156 mg/dL; Very Low Density Lipoprotein 31 mg/dL (5-40)
[2024-03-19 14:08] LABS: Chlamydia By Nucleic Acid AMP Negative (Negative); Gonococcus By Nucleic Acid AMP Negative (Negative); Trich. Vag By Nucleic Acid AMP Negative (Negative)
[2024-03-19 16:02] LABS: HPV HIGH RISK 16/18 Negative; HPV Reflexed? YES, CHARGE PATIENT
== END 2024-03-16 23:59 | disposition home or self-care (01) ==
LOC: MFPLAB 09:36
PROVIDERS: PCP Family Medicine; Visit Provider Nurse Practitioner Family
DX: Z13.220 Encounter for screening for lipoid disorders (principal); Z13.1 Encounter for screening for diabetes mellitus
CPT/HCPCS: 36415; 80048; 80061; 87491; 87591; 87624; 88175; G0145

== ENCOUNTER → 2024-03-26 | Outpatient (CLI) | payer OTHER, SELFPAY ==
[2018-01-13 08:58] VITALS: BMI 33.0
[2024-03-26 23:38] LABS: Hemoglobin A1c 5.1 % (3.8-5.6)
== END | disposition home or self-care (01) ==
LOC: MFPLAB 10:30
PROVIDERS: PCP Family Medicine; Visit Provider Nurse Practitioner Family
DX: R73.01 Impaired fasting glucose (principal)
CPT/HCPCS: 36415; 83036

== ENCOUNTER → 2024-06-15 | Outpatient (CLI) | payer OTHER, SELFPAY ==
[2018-01-13 08:58] VITALS: BMI 33.0
[2024-06-15 15:17] LABS: Absolute Lymphocyte Count 1.86 X10^3/uL (0.83-4.51); Basophil# 0.03 X10^3/uL; Basophil% 0.3 % (0-1); Eosinophil# 0.04 X10^3/uL; Eosinophils% 0.4 % (0-5); Hematocrit 44.6 % (37-47); Hemoglobin 14.9 g/dL (12.0-15.0); Lymphocyte # 1.86 X10^3/ul (0.83-4.51); Lymphocyte % 17.8 % (19-41); Mean Corp Hgb Conc 33.4 g/dL (32-36); Mean Corpuscular Hgb 28.3 pg (27.0-32.0); Mean Corpuscular Volume 84.6 fL (81-99); Monocyte# 0.48 X10^3/uL; Monocyte% 4.6 % (0-10); NRBC Flagged by Analyzer 0 % (0-5); Neutrophil # 7.99 X10^3/uL (2.7-7.7); Neutrophil % 76.5 % (47-70); Platelet Count 231 K/mm3 (150-450); RBC Distribution Width CV 12.5 % (11.6-14.6); RBC Distribution Width SD 37.9 fl (35.1-43.9); Red Blood Count 5.27 M/mm3 (4.2-5.4); White Blood Count 10.4 K/mm3 (4.4-11.0)
[2024-06-15 16:05] LABS: ALB/GLOB Ratio 1.1 RATIO (0.9-2.4); AST(SGOT) 19 U/L (15-37); Alanine Aminotransfer ALT/SGPT 29 U/L (13-56); Alkaline Phosphatase 81 U/L (45-117); Anion Gap 6 (5-15); BUN 12 mg/dL (7-18); BUN/Creat Ratio 14.9 RATIO (10-20); CRP < 2.90 mg/L (0.0-3.0); Calcium,Total 9.8 mg/dL (8.5-10.1); Chloride 110 mmol/L (98-107); EST Glomerular Filtration Rate 89 mL/min (>60); Est Glom Filt Rate - Afr Amer 108 mL/min (>60); Globulin 3.6 g/dL (2.2-4.2); Glucose 105 mg/dL (74-106); Potassium 3.9 mmol/L (3.5-5.1); Protein, Total 7.6 g/dL (6.4-8.2); Sodium Level 140 mmol/L (136-145)
[2024-06-18 16:11] LABS: KEPPRA (LEVETIRACETAM) 37.2 ug/mL (10.0-40.0)
== END | disposition home or self-care (01) ==
LOC: MTLAB 12:33
PROVIDERS: PCP Family Medicine; Referring Provider Family Medicine; Visit Provider Family Medicine
DX: C71.9 Malignant neoplasm of brain, unspecified (principal)
CPT/HCPCS: 36415; 80053; 80177; 85025; 86140

== ENCOUNTER → 2024-06-18 | Outpatient (CLI) | payer OTHER, SELFPAY ==
[2018-01-13 08:58] VITALS: BMI 33.0
--- NOTE | 2024-06-18 07:20 | MRI_ITS ---
STUDY: MRI BRAIN WITH AND WITHOUT CONTRAST REASON FOR EXAM: Female, 28 years old. STAT: glioblastoma and new seizure. needs CC to Dr Browne TECHNIQUE: Standardized multiplanar fat and water weighted pulse sequences were obtained. IV 19cc Clariscan was administered for the contrast portion of the examination. COMPARISON: 08/21/2021 FINDINGS: Normal size of the ventricles and extra-axial spaces for the patient''s age. Normal white matter tracts of the supratentorial brain. There is no evidence for recent intracranial ischemia or other cause of cytotoxic edema on diffusion weighted imaging (DWI). Normal T2* images of the brain without demonstrated susceptibility artifact. There is no demonstrated hemosiderin stain. Normal bilateral basal ganglia. Normal thalami. There is no extra-axial fluid accumulation. Normal flow voids within the major intracranial circulation suggesting patency by spin echo criteria. Normal venous enhancement. There is no enhancing intra-axial or extra-axial abnormality. In particular, no evidence of residual enhancing mass in the left frontal lobe at the site of resection. Normal sella turcica, pituitary gland, infundibular stalk, optic chiasm and hypothalamus. Normal tectal plate and pineal gland. Normal midbrain, nia and medulla. Normal cerebellum. Normal basal cisterns. Normal bilateral temporal bones. Normal bilateral internal auditory canals. No demonstrated orbital abnormality, within the constraints of a routine brain study. Normal visualized paranasal sinuses. Normal calvarium and skull base. Normal visualized soft tissue structures. Normal visualized upper cervical spine. MRI/Brain W/WO Contrast IMPRESSION: Postsurgical changes without evidence of residual recurrent tumor. Electronically Signed: Jordan Zacarias MD at 15:36 EDT ,
== END | disposition home or self-care (01) ==
PROVIDERS: PCP Family Medicine; Referring Provider Family Medicine; Visit Provider Family Medicine
DX: C71.9 Malignant neoplasm of brain, unspecified (principal)
CPT/HCPCS: 70553; A9575

== ENCOUNTER 2024-12-01 21:38 | Emergency (ER) | payer OTHER, SELFPAY ==
[2018-01-13 08:58] VITALS: BMI 33.0
[2024-12-01 21:39] VITALS: BP 151/100; PULSE 110; RESP 20; TEMP 36.2; O2SAT 96; BMI 36.9
[2024-12-01 21:45] VITALS: BP 140/89; PULSE 107; RESP 14; O2SAT 95
--- NOTE | 2024-12-01 22:04 | CT_ITS ---
EXAM: CT images of the brain were acquired without intravenous contrast. Multiplanar reformats were acquired. COMPARISON: MRI brain 06/18/2020. FINDINGS: * ACUTE: No acute infarct or hemorrhage. No mass effect or herniation. * BRAIN PARENCHYMA: Stable left frontal lobe encephalomalacia. There is ex vacuo dilatation of the frontal horn of left lateral ventricle. Otherwise, the intracranial parenchyma is within normal limits. Linda-white matter differentiation is maintained. No suspicious mass. * VENTRICLES/EXTRA-AXIAL SPACES: No hydrocephalus or extra-axial fluid collections. * EXTRACRANIAL STRUCTURES: Visualized osseous structures are normal. Soft tissues are normal. CT/Brain/Head without Contrast IMPRESSION: No acute intracranial findings. Stable left frontal lobe encephalomalacia. CLINICAL HISTORY: SEIZURE Reading Location: [facility]
[2024-12-01 22:15] LABS: Absolute Lymphocyte Count 3.14 X10^3/uL (0.83-4.51); Absolute Neutrophil Count 4.9 X10^3/uL (2.0-7.7); Basophil# 0.03 X10^3/uL; Basophil% 0.3 % (0-1); Eosinophils% 1.1 % (0-5); Hemoglobin 14.7 g/dL (12.0-15.0); Lymphocyte # 3.14 X10^3/ul (0.83-4.51); Mean Corp Hgb Conc 34.2 g/dL (32-36); Mean Corpuscular Hgb 28.4 pg (27.0-32.0); Mean Corpuscular Volume 83.2 fL (81-99); Mean Platelet Vol. 9.5 fl (6.2-12.0); Monocyte% 5.7 % (0-10); NRBC Flagged by Analyzer 0 % (0-5); Neutrophil # 4.92 X10^3/uL (2.7-7.7); Neutrophil % 56.6 % (47-70); Platelet Count 237 K/mm3 (150-450); RBC Distribution Width CV 12.3 % (11.6-14.6); RBC Distribution Width SD 37.1 fl (35.1-43.9); Red Blood Count 5.17 M/mm3 (4.2-5.4); White Blood Count 8.7 K/mm3 (4.4-11.0)
--- NOTE | 2024-12-01 22:16 | EX.ED.DYSGE1 ---
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 She had seizure secondary to the astrocytoma prior to surgery and since removal she has had 1 breakthrough seizure occurring in May 2024. At that time she was seen by her neurologist at [facility] had an MRI obtained which showed no return of the tumor and had her Keppra increased to 1 g twice a day. She states that this evening she was at her sister's house when she reported told her sister that she did not feel well and thought she was going to have a seizure and lowered herself to the floor. Reportedly she had a 2 to 3-minute tonic-clonic seizure. She has returned to baseline mental status but secondary to the breakthrough seizure presents for evaluation. She states she has been taking her Keppra as directed she denies any recent illnesses or new medications. [facility] Medical History neurosurgery Resection of left frontal mass left frontal craniotomy Seizure Lesion of left frontal lobe of brain Obesity Home Medications ?Medication ?Instructions ?Recorded ?Last Taken ?Type levetiracetam 500 mg tablet 1,000 mg PO BID 12/01/24 Unknown History Allergy/AdvReac Type Severity Reaction Status Date / Time No Known Allergies Allergy Verified 12/01/24 21:38 Family History Mother Hypertension Social History (Updated 03/17/18 @ 17:55 by Thee GOSS, PA) Smoking Status: Never smoker alcohol intake: never ROS ROS ED Constitutional Constitutional ED: Denies chills or fever(s) Eyes Eyes: Denies change in vision ENT ENT ED: Denies rhinorrhea or sore throat Cardiovascular Cardiovascular: Denies chest pain Respiratory/Chest Respiratory/Chest: Denies cough or dyspnea Gastrointestinal Gastrointestinal: Denies abdominal pain, diarrhea, nausea or vomiting Genitourinary Genitourinary ED: Denies dysuria Musculoskeletal Musculoskeletal: Denies myalgias Integumentary Denies rash Neurologic Neurologic: Reports other Details: Positive seizure ; Denies headache(s) Hematologic/Lymphatic Hematologic/Lymphatic: Denies easy bleeding or easy bruising EXAM Physical Exam Const Vital Signs: 12/01/24 21:39 12/01/24 21:45 Temperature 97.2 F L Temperature Source Temporal Pulse Rate 110 H 107 H Respiratory Rate 20 H 14 Blood Pressure 151/100 H 140/89 H Blood Pressure Mean 117 106 Pulse Ox 96 95 Oxygen Delivery Method Room Air Room Air Positive well nourished, well developed and obese General Appearance ED: well developed; Negative for pallor Nutritional Appearance: obese HEENT HEENT Narrative: Right sided tongue biting consistent with seizure activity No active bleeding No secondary findings in the posterior pharynx to suggest infection No signs of depressed or basilar skull fracture Eyes PERRL and EOMs intact bilaterally General Eye ED: Negative for pale conjunctiva or scleral icterus Neck supple Neck Narrative: No nuchal rigidity or meningeal signs Resp normal respiratory effort and clear to auscultation bilaterally Cardio regular rhythm Rate: tachycardic and other Other Details: Slightly tachycardic rate with regular rhythm Radial and carotid pulses are equal and symmetric GI normal to inspection, nondistended, normoactive bowel sounds, non-tender, non-distended and no masses Auscultation: normoactive bowel sounds Palpation: soft Extremity normal to inspection Neuro oriented x3, CN's II-XII intact bilaterally and no sensory deficits noted Neuro Narrative: GCS of 15 Cranial nerves II through XII are grossly intact without focal neurologic deficit No pronator drift no dysmetria no truncal ataxia NIH stroke scale score of 0 Sensorium / Orientation: alert Motor Exam: strength 5/5 throughout Psych mental status grossly normal Skin no rashes or lesions noted and no wounds General Skin Exam: Negative for jaundice or pallor MDM MDM MDM Narrative Medical decision making narrative: Patient presented to the ER slightly hypertensive but otherwise with stable vitals and was awake and alert and at baseline mental status. She reported a breakthrough seizure at home lasting 2 to 3-minutes. In order to ensure that the seizure was not due to a spontaneous bleed such as a subarachnoid or subdural hemorrhage or related to an electrolyte abnormality such as hyponatremia or hypokalemia or complication or infectious process such as UTI a basic workup was obtained. Patient's labs revealed no clinically significant finding. Head CT revealed chronic changes from previous astrocytoma but no new or acute findings. Urine sample was +1 bacteria but no white blood cells and is nitrite negative indicating this is most likely normal semaj. Therefore I do not feel the need for antibiotics at this time but based on her breakthrough seizure I will send the urine for culture to ensure that there is no true infectious process associated with this. The patient was watched in the ER and remained at her baseline mental status without any breakthrough seizure activity and therefore do not feel there is need for any further intervention or transfer and she is otherwise safe for discharge History & Record Review Discussion w/independent historian: Patient and Family Lab Data Attestation: I reviewed the patient's lab results. Labs: Laboratory Results - last 24 hr 12/01/24 12/01/24 21:45 22:42 WBC 8.7 RBC 5.17 Hgb 14.7 Hct 43.0 MCV 83.2 MCH 28.4 MCHC 34.2 RDW Std Deviation 37.1 RDW Coeff of Ruy 12.3 Plt Count 237 MPV 9.5 Immature Gran % (Auto) 0.300 Neut % (Auto) 56.6 Lymph % (Auto) 36.0 [place] % (Auto) 5.7 Eos % (Auto) 1.1 Baso % (Auto) 0.3 Absolute Neuts (auto) 4.9 Absolute Lymphs (auto) 3.14 Nucleated RBC % 0 Sodium 137 Potassium 3.6 Chloride 102 Carbon Dioxide 19.5 L Anion Gap 15 BUN 15 Creatinine 0.78 Estim Creat Clear Calc 111.05 Est GFR (MDRD) Non-Af 105 BUN/Creatinine Ratio 19.1 Glucose 133 H Calcium 9.5 Magnesium 2.1 Urine Color Yellow Urine Clarity Sl. Cloudy Urine pH 6.0 Ur Specific [place] 1.025 Urine Protein 30 H Urine Glucose (UA) Normal Urine Ketones 5 H Urine Occult Blood 10 H Urine Nitrite Negative Urine Bilirubin Negative Urine Urobilinogen Normal Ur Leukocyte Esterase 25 H Urine RBC 0-5 SEEN Urine WBC 0-5 SEEN Ur Squamous Epith Cells 0-5 SEEN Urine Bacteria 1+ Urine Mucus 0 SEEN Urine Test Negative Radiography Diagnostic Testing: Clinical Impression(s) from Imaging Studies Brain CT 12/01/24 22:04 IMPRESSION: No acute intracranial findings. Stable left frontal lobe encephalomalacia. CLINICAL HISTORY: SEIZURE [facility] Triage Chief Complaint: Seizure ED Provider: Tony Diallo Dx/Rx/DC Orders Clinical Impression: Breakthrough seizure, History of astrocytoma of brain Instructions: ED Seizure, Recurrent (Adult) Prescriptions: No Action levetiracetam 500 mg tablet 1,000 mg PO BID Stand Alone Forms: ED Work / School Excuse Primary Care Provider: Benja Simpson Referrals: Benja Simpson MD [Primary Care Provider] - Activity Restrictions/Additional Instructions: Please continue all of your home medication as directed by your doctor and follow-up with your neurologist for repeat evaluation. Return to the ER should you have any further concerns Print Language: P[place]in[place] Disposition Disposition: Home, Self Care
[2024-12-01 22:49] LABS: Mucous, Urine 0 SEEN /hpf (<or=2+)
[2024-12-01 22:52] LABS: Color, Urine Yellow (Yellow); Glucose, Dipstick Normal (Normal); Ketone-Dipstick 5 mg/dl (Negative); Leukocyte Esterase-Dipstick 25 /ul (Negative); Nitrite-Dipstick Negative (Negative); Occult Blood-Urine 10 /ul (Negative); Protein-Dipstick 30 mg/dl (Negative); Specific Gravity, Urine 1.025 (1.002-1.030); Urine Bilirubin Dipstick Negative (Negative); Urine Clarity Sl. Cloudy (Clear); Urine Urobilinogen Normal (Normal)
[2024-12-01 22:54] LABS: Anion Gap 15 (5-15); BUN 15 mg/dL (4-19); BUN/Creat Ratio 19.1 RATIO (10-20); Calcium,Total 9.5 mg/dL (7.6-11.0); Carbon Dioxide 19.5 mmol/L (21.0-32.0); Chloride 102 mmol/L (98-108); Creatinine, Serum 0.78 mg/dL (0.70-1.20); EST Glomerular Filtration Rate 105 (>60); Estimated Creatinine Clearance 111.05 ml/min (50-250); Glucose 133 mg/dL (70-99); Magnesium 2.1 mg/dL (1.5-2.2); Potassium 3.6 mmol/L (3.3-5.1); Sodium Level 137 mmol/L (133-145)
[2024-12-01 23:03] LABS: Internal QC Validated? YES +Cl - CLEAR BKGD; Pregnancy, Urine Negative Negative
[2024-12-01 23:11] LABS: Bacteria 1+ /hpf (None Seen); Red Blood Cells-Urine 0-5 SEEN /hpf (0-5); Squamous Epithelial Cells - UA 0-5 SEEN /hpf (5-10); White Blood Cells 0-5 SEEN /hpf (0-5)
[2024-12-01 23:37] VITALS: BP 149/91; PULSE 102; RESP 17; TEMP 36.8; O2SAT 99
== END 2024-12-01 23:41 | disposition home or self-care (01) ==
PROVIDERS: Emergency Provider Emergency Medicine; PCP Family Medicine; Referring Provider Emergency Medicine; Visit Provider Emergency Medicine
DX: R56.9 Unspecified convulsions (principal); E66.9 Obesity, unspecified; Z79.899 Other long term (current) drug therapy
CPT/HCPCS: 70450; 80048; 81001; 81025; 83735; 85025; 87086; 87088; 99285; A4216

== ENCOUNTER 2024-12-19 13:00 | Emergency (ER) | payer OTHER, SELFPAY ==
[2018-01-13 08:58] VITALS: BMI 33.0
[2024-12-19] VITALS (15 sets, daily range): BP systolic 113–136; BP diastolic 79–95; PULSE 91–114; RESP 13–27; TEMP 36.3–36.8; O2SAT 96–100; BMI 36.3
--- NOTE | 2024-12-19 13:28 | EDS_ITS ---
HPI History of Present Illness Chief Complaint: Seizure [facility] Medical History neurosurgery Resection of left frontal mass left frontal craniotomy Seizure Lesion of left frontal lobe of brain Obesity Home Medications ?Medication ?Instructions ?Recorded ?Last Taken ?Type levetiracetam 500 mg tablet 1,500 mg PO BID 12/01/24 U nknown History fluoxetine 10 mg tablet 5 mg PO DAILY 12/19/24 Unkno wn History lacosamide 100 mg tablet (Vimpat) 100 mg PO BID #60 ta bs 12/19/24 Unknown Rx Allergy/AdvReac Type Severity Reaction Status Date / Time No Known Allergies Allergy Verified 12/19/24 13:01 Family History Mother Hypertension Social History (Updated 03/17/18 @ 17:55 by Thee GOSS, PA) Smoking Status: Never smoker alcohol intake: never EXAM Physical Exam Const Vital Signs: 12/19/24 13:04 12/19/24 13:27 12/19/24 13:30 Temperature 98.3 F Temperature Source Oral Pulse Rate 109 H 114 H 100 Respiratory Rate 20 H 26 H 24 H Blood Pressure 136/95 H Blood Pressure Mean 107 Pulse Ox 97 98 96 Oxygen Delivery Method Room Air 12/19/24 13:45 12/19/24 14:00 12/19/24 14:15 Temperature Temperature Source Pulse Rate 95 94 Respiratory Rate 15 23 H Blood Pressure 120/84 H 121/81 H 123/86 H Blood Pressure Mean 95 93 98 Pulse Ox 99 98 Oxygen Delivery Method 12/19/24 14:20 12/19/24 14:30 12/19/24 14:45 Temperature Temperature Source Pulse Rate 95 91 98 Respiratory Rate 13 15 20 H Blood Pressure 113/80 119/83 H Blood Pressure Mean 92 95 Pulse Ox 98 100 99 Oxygen Delivery Method 12/19/24 15:00 Temperature Temperature Source Pulse Rate 94 Respiratory Rate 24 H Blood Pressure 124/79 H Blood Pressure Mean 89 Pulse Ox 99 Oxygen Delivery Method MDM MDM MDM Narrative Medical decision making narrative: HISTORY OF PRESENT ILLNESS: Chief complaint: Seizure 29-year-old female presents with seizure at [facility]. There is report of recent med changes. Reported 10-minute episode usual seizure activity. Tonic-clonic. No falls or trauma noted. Notes recently started fluoxetine a small dose. Denies any other med changes. Notes compliance with Keppra. REVIEW OF SYSTEMS: Pertinent positives: Seizure Pertinent negatives: Vomiting, focal weakness, fever PHYSICAL EXAM: Nursing triage notes reviewed, Vital signs reviewed Constitutional: please see [facility] HENT: MMM Eyes: Pupils equal round and reactive to light, Extraocular muscles intact Neck: No stridor, no JVD, full neck ROM Lungs: Clear to auscultation, No wheezing or rales. No increased work of breathing, no conversational dyspnea, no accessory muscle use, no nasal flaring. No respiratory distress noted Heart: Regular rate and rhythm, No murmurs, No rubs and No gallops, 2+ distal pulses (radial, femoral, posterior tibial) in all extremities Abdomen: Soft, there is no tenderness, rigidity, rebound or guarding, no obvious peritoneal signs, no palpable pulsatile abdominal masses, no auscultated abdominal bruit : No CVAT Extremities: No edema Neuro: No new focal neurological deficits, cranial nerves II through XII intact, 5/5 strength in all present extremities. Intact sensation to light touch in all present extremities, 2+ reflexes bilateral patella tendons. Skin: No rash or lesions noted MEDICAL DECISION MAKING: Chief Complaint: please see HPI External records reviewed: Reviewed prior imaging studies: Reviewed CT scan of the brain from November 2024 which showed no acute infarct or hemorrhage. No mass effect or herniation Factors affecting care: Seizure disorder, frontal lobe astrocytoma Social determinants of health: none History obtained from others: Family Consults: [facility] Neurology (Dr. Bonilla), Pharmacy [facility] Narrative: Patient was initially hemodynamically stable, afebrile and nontoxic-appearing. No focal neurologic deficits noted on initial exam. Patient was well-appearing. Afebrile. No meningismus or stigmata of meningitis noted on initial exam. I considered the following differential diagnosis: ICH, new mass, breakthrough seizure, electrolyte disturbance, , alcohol abuse I obtained a broad lab and imaging workup to further elucidate the etiology of the patient's complaints. Initially stabilized with IV Keppra, 500 cc bolus. ALL IMAGES (IF OBTAINED) HAVE BEEN PERSONALLY REVIEWED AND INTERPRETED BY MYSELF. CT scan of the brain was negative for any mass or ICH Urinalysis shows no evidence of urinary inflammation suggestive of UTI CBC without leukocytosis, severe anemia, no thrombocytopenia. CMP without evidence of acute kidney injury, significant electrolyte abnormality, anion gap to suggest end organ hypo-perfusion, no evidence of metabolic acidosis with a normal bicarbonate, no evidence of hepatobiliary obstructive pathology. The synthesis of the patient's history, physical exam, labs images suggest likely breakthrough seizure. No sign of precipitating cause on labs or images. Discussed case with neurology at [facility]. Recommended starting Vimpat. Discussed with pharmacy who did note that fluoxetine other SSRIs can lower seizure threshold. I further recommended that she follow-up with her prescribing physician to discuss discontinuing fluoxetine. The patient and/or family, caregivers express understanding. The patient and/or family, caregivers agrees with the plan. Shared decision making: I will have a discussion with the patient and or visitors regarding risk/benefits of further testing or admission. They will be made aware of of the risk/benefits inherent in this decision they will be given the opportunity to voice understanding. Total critical care time today provided was at least 0 minutes. This excludes separately billable procedures. Critical care time (if documented) is secondary to the patient having high probability of clinically significant/life threatening deterioration in the patient's condition which required my urgent intervention. Impression: 1. History of brain mass 2. History of seizure 3. Breakthrough seizure Dispo: Discharge home This note was generated with Asana dictation software. It may contain incorrect words, spelling, and punctuation that were not noted in review of the chart prior to signing. Lab Data Labs: Laboratory Results - last 24 hr 12/19/24 12/19/24 13:20 15:24 WBC 6.5 RBC 5.47 H Hgb 15.8 H Hct 46.0 MCV 84.1 MCH 28.9 MCHC 34.3 RDW Std Deviation 37.8 RDW Coeff of Ruy 12.3 Plt Count 197 MPV 10.3 Immature Gran % (Auto) 0.500 Neut % (Auto) 65.5 Lymph % (Auto) 28.5 [place] % (Auto) 4.4 Eos % (Auto) 0.6 Baso % (Auto) 0.5 Absolute Neuts (auto) 4.3 Absolute Lymphs (auto) 1.86 Nucleated RBC % 0 Sodium 137 Potassium 4.6 Chloride 104 Carbon Dioxide 18.3 L Anion Gap 14 BUN 12 Creatinine 0.87 Estim Creat Clear Calc 98.60 Est GFR (MDRD) Non-Af 92 BUN/Creatinine Ratio 13.7 Glucose 108 H Calcium 9.4 Total Bilirubin 0.69 AST 21 ALT 15 Alkaline Phosphatase 68 Total Protein 7.4 Albumin 4.6 Globulin 2.9 Albumin/Globulin Ratio 1.6 Urine Color Yellow Urine Clarity Clear Urine pH 6.0 Ur Specific [place] 1.010 Urine Protein 30 H Urine Glucose (UA) Normal Urine Ketones Negative Urine Occult Blood 250 H Urine Nitrite Negative Urine Bilirubin Negative Urine Urobilinogen Normal Ur Leukocyte Esterase 25 H Ethyl Alcohol < 10.1 Radiography Diagnostic Testing: Clinical Impression(s) from Imaging Studies Brain CT 12/19/24 13:30 IMPRESSION: 1. No acute intracranial finding. 2. Prior left frontal craniotomy and mass resection. Detailed evaluation is limited without prior comparison examinations. Reading Location: [facility] Discharge Plan Triage Chief Complaint: Seizure ED Provider: José Miguel Newby Dx/Rx/DC Orders Instructions: ED Seizure, Recurrent (Adult) Prescriptions: New lacosamide [Vimpat] 100 mg tablet 100 mg PO BID Qty: 60 0RF No Action levetiracetam 500 mg tablet 1,500 mg PO BID fluoxetine 10 mg tablet 5 mg PO DAILY Stand Alone Forms: ED Work / School Excuse Primary Care Provider: Benja Simpson Referrals: Benja Simpson MD [Primary Care Provider] - Mustapha Santa MD [Non-Staff] - Activity Restrictions/Additional Instructions: Thank you for trusting us with your care today! Your labs images were reassuring. No sign of significant electrolyte abnormalities, no sign of new intracranial abnormalities. I spoke with [facility] neurology Dr. Bonilla who recommended adding Vimpat (lacosamide) 100 mg twice a day. This prescription was written to your pharmacy on file. Please continue taking Keppra Please return to the emergency department if your symptoms change or worsen. Please follow with your primary care physician for further outpatient evaluation and management. Print Language: [place] Island[place] Disposition Disposition: Home, Self Care
--- NOTE | 2024-12-19 13:30 | CT_ITS ---
EXAM: BRAIN/HEAD WITHOUT CONTRAST CLINICAL HISTORY: 29 y/o F with SEIZURE.History of left frontal craniotomy and astrocytoma at age 22. COMPARISON: None. TECHNIQUE: Routine CT imaging of the head without IV contrast. Additional multiplanar reformats were obtained. Dose reduction techniques were used including intermediate exposure control (AEC),iterative reconstruction technique, and/or mA and/or KV dose adjustments based on patient's size. FINDINGS: Prior left frontal craniotomy and mass resection with encephalomalacia and gliosis of the left frontal lobe. The nelson-white matter interfaces are otherwise maintained. There is no evidence of intracranial hemorrhage or herniation. There is no midline shift, mass effect, or extra-axial collection. The orbits, visualized paranasal sinuses and mastoids are unremarkable. No acute calvarial fracture or scalp hematoma. CT/Brain/Head without Contrast IMPRESSION: 1. No acute intracranial finding. 2. Prior left frontal craniotomy and mass resection. Detailed evaluation is li mited without prior comparison examinations. Reading Location: [id number]
--- NOTE | 2024-12-19 13:30 | EKG12_ITS ---
Test Reason : SEIZURE Blood Pressure : */* mmHG Vent. Rate : 95 BPM Atrial Rate : 95 BPM P-R Int : 172 ms QRS Dur : 90 ms QT Int : 350 ms P-R-T Axes : 29 -13 6 degrees QTcB Int : 439 ms Normal sinus rhythm Normal ECG Confirmed by RFEDI VILLANUEVA, WM ([id number]), electronic news gathering editor PAN VENCES ([id number]) on 12/20/2024 9:16:02 AM Referred By: Confirmed By: WM RAI MD
[2024-12-19 13:40] LABS: Absolute Lymphocyte Count 1.86 X10^3/uL (0.83-4.51); Absolute Neutrophil Count 4.3 X10^3/uL (2.0-7.7); Basophil# 0.03 X10^3/uL; Basophil% 0.5 % (0-1); Eosinophil# 0.04 X10^3/uL; Eosinophils% 0.6 % (0-5); Hemoglobin 15.8 g/dL (12.0-15.0); Lymphocyte # 1.86 X10^3/ul (0.83-4.51); Lymphocyte % 28.5 % (19-41); Mean Corp Hgb Conc 34.3 g/dL (32-36); Mean Corpuscular Hgb 28.9 pg (27.0-32.0); Mean Corpuscular Volume 84.1 fL (81-99); Mean Platelet Vol. 10.3 fl (6.2-12.0); Monocyte# 0.29 X10^3/uL; Monocyte% 4.4 % (0-10); NRBC Flagged by Analyzer 0 % (0-5); Neutrophil # 4.27 X10^3/uL (2.7-7.7); Neutrophil % 65.5 % (47-70); Platelet Count 197 K/mm3 (150-450); RBC Distribution Width CV 12.3 % (11.6-14.6); RBC Distribution Width SD 37.8 fl (35.1-43.9); Red Blood Count 5.47 M/mm3 (4.2-5.4); White Blood Count 6.5 K/mm3 (4.4-11.0)
[2024-12-19] MEDS: 0.9% Normal Saline (500mL Bag) 500 ML 1000 ML IV (14:00)
[2024-12-19 14:03] LABS: ALB/GLOB Ratio 1.6 RATIO (0.9-2.4); AST(SGOT) 21 U/L (<=31); Alanine Aminotransfer ALT/SGPT 15 U/L (<=34); Albumin, Serum 4.6 g/dL (3.5-5.0); Alcohol, Blood (Medical)-Serum < 10.1 mg/dL (<=10.0); Alkaline Phosphatase 68 U/L (35-104); Anion Gap 14 (5-15); BUN 12 mg/dL (4-19); BUN/Creat Ratio 13.7 RATIO (10-20); Calcium,Total 9.4 mg/dL (7.6-11.0); Carbon Dioxide 18.3 mmol/L (21.0-32.0); Chloride 104 mmol/L (98-108); Creatinine, Serum 0.87 mg/dL (0.70-1.20); EST Glomerular Filtration Rate 92 (>60); Globulin 2.9 g/dL (2.2-4.2); Glucose 108 mg/dL (70-99); Potassium 4.6 mmol/L (3.3-5.1); Protein, Total 7.4 g/dL (5.9-8.4); Sodium Level 137 mmol/L (133-145); Total Bilirubin 0.69 mg/dL (0.00-1.30)
[2024-12-19] MEDS: levETIRAcetam IV 1,500 MG in 0.9% Normal Saline (100mL Bag) 100 ML 460 MG IV (14:05)
[2024-12-19 15:33] LABS: Mucous, Urine 0 SEEN /hpf (<or=2+)
[2024-12-19 15:36] LABS: Color, Urine Yellow (Yellow); Glucose, Dipstick Normal (Normal); Ketone-Dipstick Negative (Negative); Leukocyte Esterase-Dipstick 25 /ul (Negative); Nitrite-Dipstick Negative (Negative); Occult Blood-Urine 250 /ul (Negative); Protein-Dipstick 30 mg/dl (Negative); Urine Bilirubin Dipstick Negative (Negative); Urine Clarity Clear (Clear); Urine Urobilinogen Normal (Normal)
[2024-12-19 15:50] LABS: Red Blood Cells-Urine 50-100 SEEN /hpf (0-5); Squamous Epithelial Cells - UA 0-5 SEEN /hpf (5-10); White Blood Cells 0-5 SEEN /hpf (0-5)
[2024-12-19 15:51] LABS: Bacteria RARE /hpf (None Seen)
[2024-12-19 15:52] LABS: Internal QC Validated? YES +Cl - CLEAR BKGD; Pregnancy, Urine Negative Negative
== END 2024-12-19 16:45 | disposition home or self-care (01) ==
PROVIDERS: Emergency Provider Emergency Medicine; PCP Family Medicine; Visit Provider Emergency Medicine
DX: R56.9 Unspecified convulsions (principal); Z86.011 Personal history of benign neoplasm of the brain
CPT/HCPCS: 70450; 80053; 81001; 81025; 82077; 85025; 93005; 96360; 99285; A4216

== ENCOUNTER → 2024-12-27 | Outpatient (CLI) | payer OTHER, SELFPAY ==
[2018-01-13 08:58] VITALS: BMI 33.0
--- NOTE | 2024-12-27 08:12 | MRI_ITS ---
PROCEDURE: BRAIN W/WO CONTRAST 12/27/2024 REASON FOR EXAM: ASTROCYTOMA, GRADE II, 12/16/2017 craniotomy, breakthrough seizures TECHNIQUE: Routine brain MRI without and with intravenous contrast. Multiplanar and multisequence images were obtained. CONTRAST: 18 mL Clariscan IV COMPARISON: 06/18/2024; 12/19/2024 CT FINDINGS: Brain: High left frontal resection cavity with surrounding gliosis redemonstrated. Overlying hemosiderin staining. No significant abnormal enhancement. Otherwise normal signal intensities. Midline structures appear normal. Diffusion: No restricted diffusion. Ventricles: Anterior left lateral ventricle ex vacuo dilation. Otherwise normal. Major Intracranial Vessels: Major flow voids are maintained. Sinuses: Clear. Mastoids: Clear. MRI/Brain W/WO Contrast IMPRESSION: Unchanged high right frontal resection cavity. No abnormal enhancement to sugg est recurrence or metastasis. Reading [facility]
[2024-12-27 08:46] LABS: Absolute Lymphocyte Count 2.06 X10^3/uL (0.83-4.51); Absolute Neutrophil Count 4.1 X10^3/uL (2.0-7.7); Basophil# 0.02 X10^3/uL; Basophil% 0.3 % (0-1); Eosinophil# 0.09 X10^3/uL; Eosinophils% 1.4 % (0-5); Hematocrit 45.2 % (37-47); Hemoglobin 15.3 g/dL (12.0-15.0); Lymphocyte # 2.06 X10^3/ul (0.83-4.51); Lymphocyte % 31.4 % (19-41); Mean Corp Hgb Conc 33.8 g/dL (32-36); Mean Corpuscular Hgb 28.7 pg (27.0-32.0); Mean Corpuscular Volume 84.8 fL (81-99); Mean Platelet Vol. 9.3 fl (6.2-12.0); Monocyte# 0.34 X10^3/uL; Monocyte% 5.2 % (0-10); NRBC Flagged by Analyzer 0 % (0-5); Neutrophil # 4.05 X10^3/uL (2.7-7.7); Neutrophil % 61.5 % (47-70); Platelet Count 213 K/mm3 (150-450); RBC Distribution Width CV 12.5 % (11.6-14.6); RBC Distribution Width SD 38.3 fl (35.1-43.9); Red Blood Count 5.33 M/mm3 (4.2-5.4); White Blood Count 6.6 K/mm3 (4.4-11.0)
[2024-12-27 09:19] LABS: Ammonia 26.8 umol/L (11-51)
[2024-12-27 09:38] LABS: ALB/GLOB Ratio 1.7 RATIO (0.9-2.4); AST(SGOT) 13 U/L (<=31); Alanine Aminotransfer ALT/SGPT 14 U/L (<=34); Albumin, Serum 4.4 g/dL (3.5-5.0); Alkaline Phosphatase 66 U/L (35-104); Anion Gap 10 (5-15); BUN 13 mg/dL (4-19); BUN/Creat Ratio 16.2 RATIO (10-20); Calcium,Total 9.3 mg/dL (7.6-11.0); Carbon Dioxide 23.8 mmol/L (21.0-32.0); Chloride 104 mmol/L (98-108); Creatinine, Serum 0.79 mg/dL (0.70-1.20); EST Glomerular Filtration Rate 104 (>60); Globulin 2.6 g/dL (2.2-4.2); Glucose 98 mg/dL (70-99); Sodium Level 138 mmol/L (133-145); Total Bilirubin 0.92 mg/dL (0.00-1.30)
== END | disposition home or self-care (01) ==
LOC: MRI 08:03
PROVIDERS: PCP Family Medicine
DX: C71.9 Malignant neoplasm of brain, unspecified (principal); R56.9 Unspecified convulsions
CPT/HCPCS: 70553; 80053; 82140; 84443; 85025; A9575

== ENCOUNTER 2025-03-29 09:43 | Outpatient (RCR) | payer OTHER, SELFPAY ==
[2018-01-13 08:58] VITALS: BMI 33.0
[2025-03-29 10:32] LABS: Hematocrit 45.3 % (37-47); Hemoglobin 15.3 g/dL (12.0-15.0); Immature Granulocytes Count 0.020 X10^3/uL (0.0-0.0); Mean Corp Hgb Conc 33.8 g/dL (32-36); Mean Corpuscular Volume 85.5 fL (81-99); Mean Platelet Vol. 9.3 fl (6.2-12.0); NRBC Flagged by Analyzer 0 % (0-5); Platelet Count 197 K/mm3 (150-450); RBC Distribution Width CV 11.9 % (11.6-14.6); RBC Distribution Width SD 37.2 fl (35.1-43.9); Red Blood Count 5.30 M/mm3 (4.2-5.4); White Blood Count 6.5 K/mm3 (4.4-11.0)
[2025-03-29 11:18] LABS: AST(SGOT) 16 U/L (<=31); Alanine Aminotransfer ALT/SGPT 12 U/L (<=34); Albumin, Serum 4.3 g/dL (3.5-5.0); Alkaline Phosphatase 70 U/L (35-104); Anion Gap 11 (5-15); BUN 17 mg/dL (4-19); BUN/Creat Ratio 21.7 RATIO (10-20); Calcium,Total 9.5 mg/dL (7.6-11.0); Carbon Dioxide 25.4 mmol/L (21.0-32.0); Chloride 103 mmol/L (98-108); Globulin 2.6 g/dL (2.2-4.2); Glucose 84 mg/dL (70-99); Potassium 4.4 mmol/L (3.3-5.1)
[2025-03-29 11:23] LABS: hCG Titer Quant., Serum < 1 mIU/mL (<9 non-preg)
== END 2025-04-14 20:42 | disposition home or self-care (01) ==
LOC: LAB 09:43
PROVIDERS: PCP Family Medicine
DX: C71.9 Malignant neoplasm of brain, unspecified (principal)
CPT/HCPCS: 36415; 80053; 84702; 85025

== ENCOUNTER 2025-07-11 10:58 | Outpatient (RCR) | payer OTHER, SELFPAY ==
[2018-01-13 08:58] VITALS: BMI 33.0
[2025-07-05 15:49] LABS: hCG Titer Quant., Serum < 1 mIU/mL (<9 non-preg)
[2025-07-11 11:34] LABS: Hematocrit 42.5 % (37-47); Hemoglobin 14.7 g/dL (12.0-15.0); Immature Granulocytes Count 0.020 X10^3/uL (0.0-0.0); Mean Corp Hgb Conc 34.6 g/dL (32-36); Mean Corpuscular Volume 84.2 fL (81-99); Mean Platelet Vol. 8.9 fl (6.2-12.0); NRBC Flagged by Analyzer 0 % (0-5); Platelet Count 179 K/mm3 (150-450); RBC Distribution Width CV 12.0 % (11.6-14.6); RBC Distribution Width SD 36.4 fl (35.1-43.9); Red Blood Count 5.05 M/mm3 (4.2-5.4); White Blood Count 4.5 K/mm3 (4.4-11.0)
[2025-07-11 12:01] LABS: AST(SGOT) 26 U/L (<=31); Alanine Aminotransfer ALT/SGPT 17 U/L (<=34); Albumin, Serum 4.3 g/dL (3.5-5.0); Alkaline Phosphatase 59 U/L (35-104); Anion Gap 8 (5-15); BUN 10 mg/dL (4-19); BUN/Creat Ratio 14.3 RATIO (10-20); Calcium,Total 9.2 mg/dL (7.6-11.0); Carbon Dioxide 25.0 mmol/L (21.0-32.0); Chloride 106 mmol/L (98-108); Globulin 2.6 g/dL (2.2-4.2); Glucose 89 mg/dL (70-99); Potassium 4.4 mmol/L (3.3-5.1)
[2025-07-11 12:07] LABS: hCG Titer Quant., Serum < 1 mIU/mL (<9 non-preg)
== END 2025-07-11 18:00 | disposition home or self-care (01) ==
LOC: LAB 10:58
PROVIDERS: PCP Family Medicine
DX: C71.9 Malignant neoplasm of brain, unspecified (principal)
CPT/HCPCS: 36415; 80053; 84702; 85025

== ENCOUNTER 2025-09-12 14:01 | Outpatient (RCR) | payer OTHER, SELFPAY ==
[2018-01-13 08:58] VITALS: BMI 33.0
[2025-08-23 16:12] LABS: Hematocrit 44.1 % (37-47); Hemoglobin 15.0 g/dL (12.0-15.0); Immature Granulocytes Count 0.030 X10^3/uL (0.0-0.0); Mean Corp Hgb Conc 34.0 g/dL (32-36); Mean Corpuscular Volume 84.2 fL (81-99); Mean Platelet Vol. 9.2 fl (6.2-12.0); NRBC Flagged by Analyzer 0 % (0-5); Platelet Count 214 K/mm3 (150-450); RBC Distribution Width CV 11.8 % (11.6-14.6); RBC Distribution Width SD 35.9 fl (35.1-43.9); Red Blood Count 5.24 M/mm3 (4.2-5.4); White Blood Count 8.1 K/mm3 (4.4-11.0)
[2025-08-23 17:13] LABS: AST(SGOT) 18 U/L (<=31); Alanine Aminotransfer ALT/SGPT 27 U/L (<=34); Albumin, Serum 4.6 g/dL (3.5-5.0); Alkaline Phosphatase 66 U/L (35-104); Anion Gap 10 (5-15); BUN 17 mg/dL (4-19); BUN/Creat Ratio 23.1 RATIO (10-20); Calcium,Total 9.8 mg/dL (7.6-11.0); Carbon Dioxide 25.4 mmol/L (21.0-32.0); Chloride 104 mmol/L (98-108); Globulin 2.6 g/dL (2.2-4.2); Glucose 91 mg/dL (70-99); Potassium 4.3 mmol/L (3.3-5.1)
[2025-08-24 04:07] LABS: HCG BETA-SUBUNIT QUANT. < 1 mIU/mL (.)
[2025-09-12 15:23] LABS: Hematocrit 46.5 % (37-47); Hemoglobin 15.5 g/dL (12.0-15.0); Immature Granulocytes Count 0.030 X10^3/uL (0.0-0.0); Mean Corp Hgb Conc 33.3 g/dL (32-36); Mean Corpuscular Volume 86.1 fL (81-99); Mean Platelet Vol. 9.5 fl (6.2-12.0); NRBC Flagged by Analyzer 0 % (0-5); Platelet Count 232 K/mm3 (150-450); RBC Distribution Width CV 12.0 % (11.6-14.6); RBC Distribution Width SD 37.6 fl (35.1-43.9); Red Blood Count 5.40 M/mm3 (4.2-5.4); White Blood Count 8.4 K/mm3 (4.4-11.0)
[2025-09-12 15:43] LABS: AST(SGOT) 19 U/L (<=31); Alanine Aminotransfer ALT/SGPT 32 U/L (<=34); Albumin, Serum 4.6 g/dL (3.5-5.0); Alkaline Phosphatase 64 U/L (35-104); Anion Gap 10 (7-18); BUN 10 mg/dL (4-19); BUN/Creat Ratio 14.6 RATIO (10-20); Calcium,Total 9.9 mg/dL (7.6-11.0); Carbon Dioxide 24.6 mmol/L (20.0-29.0); Chloride 105 mmol/L (96-106); Globulin 2.7 g/dL (2.2-4.2); Glucose 97 mg/dL (70-99); Potassium 4.3 mmol/L (3.5-5.1)
[2025-09-12 17:22] LABS: Internal QC Validated? YES +Cl - CLEAR BKGD; Pregnancy, Serum, hCG Quali. NEGATIVE Negative
== END 2025-09-12 18:00 | disposition home or self-care (01) ==
LOC: LAB 14:01
PROVIDERS: PCP Family Medicine
DX: C71.9 Malignant neoplasm of brain, unspecified (principal)
CPT/HCPCS: 36415; 80053; 84702; 84703; 85025